=== PATIENT | female | born 1970 | race Two or more races ===

== ENCOUNTER 2024-11-19 09:20 | Inpatient (IN) | payer MEDICARE, MEDICAID, SELFPAY ==
[2024-11-19 09:40] VITALS: BP 114/74; PULSE 101; RESP 20; TEMP 37.2; O2SAT 97
--- NOTE | 2024-11-19 09:51 | XR_ITS ---
Examination: Abdomen sonogram, Limited Date and time of exam: November 19, 2024 10:14 AM Indications: Right upper abdominal pain with nausea beginning 3 days ago, history gallstones Technique: Real-time edmonds scale transabdominal sonographic images of the upper abdomen obtained. Findings: Multiple gallstones, the largest 6 mm Gallbladder wall 0.3 cm no edema Common bile duct 0.2 cm no stones Pancreas obscured by bowel gas Liver 15.3 cm fatty liver no focal liver lesions Normal hepatopedal portal venous oh Patent IVC Impression: Cholelithiasis, negative for cholecystitis Normal common bile duct Fatty liver
--- NOTE | 2024-11-19 09:51 | PD.EDRME ---
Rapid Medical Screening Exam RME Arrival date/time: 11/19/24 09:20 54-year-old female with history of gallstones presents to the emergency department today complaints of gallstone attack Chief Complaint: Abdominal Pain Vital signs: Vital Signs Temperature 99.0 F 11/19/24 09:40 Pulse Rate 101 H 11/19/24 09:40 Respiratory Rate 20 11/19/24 09:40 Blood Pressure 114/74 11/19/24 09:40 Pulse Oximetry (%) 97 11/19/24 09:40 Oxygen Delivery Method Room Air 11/19/24 09:40
[2024-11-19 10:05] LABS: Basophils % (Auto) 0 % (0-2.5); Eosinophils % (Auto) 0 % (0-10); Hematocrit 31.5 % (36.0-46.0); Hemoglobin 10.5 g/dL (12.0-16.0); Immature Granulocytes % (Auto) 1 % (0-0); Immature Granulocytes Auto 0.11 Thou/mm3 (0.00-0.00); Lymphocytes # (Auto) 0.6 Thou/mm3 (1.0-4.8); Lymphocytes % (Auto) 3 % (10-50); Mean Corpuscular HGB Conc 33.3 g/dl (31.0-37.0); Mean Corpuscular Hemoglobin 26.1 pg (25.0-35.0); Mean Corpuscular Volume 78 fL (80-100); Monocytes # (Auto) 0.7 Thou/mm3 (0.0-0.8); Monocytes % (Auto) 4 % (0-12); Neutrophils # (Auto) 16.8 Thou/mm3 (1.8-7.7); Neutrophils % (Auto) 92 % (37-80); Nucleated Red Blood Cell % 0 /100 WBC (0); Platelet Count 267 Thou/mm3 (140-440); RDW Standard Deviation 45.2 fL (36.4-46.3); Red Blood Count 4.03 Miln/mm3 (4.00-5.20); White Blood Count 18.2 Thou/mm3 (3.6-11.0)
[2024-11-19 10:23] LABS: Alanine Aminotransferase 11 U/L (10-49); Albumin, Serum 4.2 gm/dL (3.5-5.0); Albumin/Globulin Ratio 1.5 (1.2-2.2); Alkaline Phosphatase 143 U/L (46-116); Anion Gap 8 (7-16); Aspartate Amino Transferase 10 U/L (0-34); BUN/Creatinine Ratio 12 Ratio (12-20); Bilirubin,Total 0.5 mg/dL (0.3-1.2); Blood Urea Nitrogen 12 mg/dL (9-23); Calcium 8.7 mg/dL (8.3-10.6); Calcium (Corrected) 8.7 mg/dL (8.5-10.1); Carbon Dioxide 26.7 mMol/L (20.0-31.0); Chloride 100 mMol/L (98-107); Globulin 2.8 gm/dL (2.3-3.5); Glucose 169 mg/dL (74-106); Lipase 24 U/L (12-53); Osmolality,Calculated 273 (275-295); Potassium 3.9 mMol/L (3.4-5.1); Sodium 135 mMol/L (136-145); eGFR > 60 See Note
[2024-11-19 15:15] VITALS: BP 118/66; PULSE 83; RESP 18; TEMP 37.4; O2SAT 99
[2024-11-19 15:25] LABS: Collection Type, Urine Clean Catch
[2024-11-19 15:35] LABS: Bacteria,Urine Rare; Bilirubin,Urine 1+ (Negative); Blood,Urine Negative (Negative); Clarity,Urine Turbid (Clear/Hazy); Color,Urine Drk-Yellow (Lt Yel-Yel); Culture Indicated,Urine Contaminated; Glucose, Urine Negative (Negative); Hyaline Casts,Urine < 1 /hpf (0-1); Ketones,Urine Trace (Negative); Leukocyte Esterase,Urine Positive (Negative); Nitrite,Urine Negative (Negative); Protein,Urine 2+ (Neg - Trace); RBC,Urine 10 /hpf (0-3); Specific Gravity,Urine 1.043 (1.001-1.035); Squamous Epithelial Cell,Urine 29 /hpf (0-5); WBC,Urine 53 /hpf (0-5)
[2024-11-19 15:36] LABS: HCG Qualitative,Urine Negative
--- NOTE | 2024-11-19 16:44 | PC.NURSE ---
Pt. here from home to room 14, pt. states she has had nausea, abdominal pain that is burning X 3 days, pt. denies any vomiting. Pt. states her urine looked terrible but pt. denies pain with urination. Pt. states she does notice the pain comes after she eats, pt. states she has a history of gallstones.
--- NOTE | 2024-11-19 18:52 | EDNOTE_ITS ---
ED Abdominal Pain RME/HPI General Chief Complaint: Abdominal Pain Stated complaint: RUQ PAIN HX OF GALLSTONES Time seen by provider: 11/19/24 19:16 Arrival date/time: 11/19/24 09:20 RME / HPI RME / HPI narrative: 11/19/24 09:20 Rapid Medical Screening Exam 54-year-old female with history of gallstones presents to the emergency department today complaints of gallstone attack Main ED Evaluation: Patient is a 54-year-old female with past medical history of hypertension, hyperlipidemia, obesity, COPD, depression, and anxiety who presents with about 3 days of worsening generalized mid-abdominal pain radiating to the suprapubic area with associated nausea and decreased appetite. She reports pain is colicky and today the pain was reaching 9-10/10 on pain scale therefore she came into the ED. Today she took 2 ibuprofen 800 mg without relief. Patient endorses history of 3 episodes of similar pain in the same area for the last 1 year which ended up self-resolving. She was diagnosed with gallstones by her PCP and she was previously referred to a general surgeon in [place] but was pending clearance for surgery. She denies known history of diverticulitis or diverticulosis. She has chronic constipation for which she takes Colace. MD complaint: abdominal pain Onset (ago): day(s) Consistency: colicky Location: diffuse Severity: severe Severity scale (1-10): 10 Quality: other ( unable to describe ) Radiation: back Migration to: suprapubic Relieving factors: nothing Exacerbating factors: nothing Context: history of similar episodes (3) Associated symptoms: nausea Treatments prior to arrival: NSAIDs Related Data Home Medications ?Medication ?Instructions ?Recorded ?Confirmed metoprolol tartrate 100 mg tablet 100 mg PO BID 11/20/24 amlodipine 10 mg tablet 10 mg PO QDAY 08/14/2111/20 clozapine 100 mg tablet 250 mg PO HS 08/14/21 lisinopril 10 mg tablet 10 mg PO QDAY 08/14/2111/20 aripiprazole 10 mg tablet 10 mg PO QDAY 01/06/2411/20 buspirone 30 mg tablet 30 mg PO BID 01/06/24 docusate sodium 250 mg capsule 250 mg PO QDAY 01/06/24 11/20/24 fluoxetine 60 mg tablet 60 mg PO QDAY 01/06/2411/20 montelukast 10 mg tablet 10 mg PO QDAY 01/06/2411/20 omeprazole 40 mg capsule,delayed 40 mg PO QDAY 4 11/20/24 release oxcarbazepine 150 mg tablet 150 mg PO BID 01/06/2401/09 simvastatin 20 mg tablet 20 mg PO QPM 01/06/24 albuterol sulfate 90 mcg/actuation 2 puff inhalation Q 4H PRN 11/20/24 11/20/24 aerosol inhaler shortness of breath umeclidinium 62.5 mcg-vilanterol 1 inh inhalation Q24H 11/20/24 11/20/24 25 mcg/actuation powdr for inhalation (Anoro Ellipta) Allergies Allergy/AdvReac Type Severity Reaction Status Date / Time No Known Allergies Allergy Verified 11/19/24 09:23 Past Medical History Past Medical History Comments PMH COMMENT: Past Medical History: Hypertension, hyperlipidemia, obesity, COPD, depression, and anxiety Family History: No known history of gallbladder issues Surgical History: No previous surgeries Social History: Current smoker 3 cigarettes per day, denies current alcohol use, denies recreational drug use Current Medications: Include metoprolol, lisinopril, buspirone, clozapine, montelukast Allergies: No known drug allergies ED Exam Narrative Physical exam: Physical Exam General: Awake and in no acute distress. Conversational and non-toxic appearing. HEENT: Normocephalic, atraumatic, mucous membranes moist. Heart: Regular rate and rhythm, no murmurs. Lungs: Clear to auscultation with no wheezing or crackles. Abdomen: Soft, obese, nondistended, tenderness to palpation mid abdomen and suprapubic area, positive bowel sounds. ?No guarding or rebound tenderness. Negative Beebe's sign. Neurologic: Alert and oriented x3, no gross neurological deficit, and patient able to move all 4 extremities. Extremities: No edema. Skin: No rash or ecchymoses. Course Course Course Narrative: US gallbladder Findings: Multiple gallstones, the largest 6 mm Gallbladder wall 0.3 cm no edema Common bile duct 0.2 cm no stones Pancreas obscured by bowel gas Liver 15.3 cm fatty liver no focal liver lesions Normal hepatopedal portal venous oh Patent IVC Impression: Cholelithiasis, negative for cholecystitis Normal common bile duct Fatty liver CT abdomen/pelvis without contrast: Findings: No focal liver or splenic lesions No gallstones No pancreatic or adrenal mass No renal or ureteral calculi, no hydronephrosis Marked inflammatory change about the rectosigmoid, axial image 168 with possible diverticula Atrophic uterus Urinary bladder is intact Air-containing possible abscess in the perirectal sigmoid region, 5.2 cm IMPRESSION: Marked abnormal inflammatory change about the rectosigmoid, differential would include perforated tumor, diverticulitis, other colitis patterns Air-containing possible abscess in the pelvis 5.2 cm Quality Measures none Orders Category Date Time Status COVID-19 Screening Questionnaire NOW Care 11/19/24 22:09 Completed Decision to Admit X1 Care 11/19/24 22:09 Completed NPO NOW Care 11/19/24 22:20 Active Consult to General Surgery Stat Cons 11/19/24 21:15 Ordered Diet NPO (NOW) Diet 11/19/24 22:[address] abdomen pelvis wo con Stat Exams 11/19/24 18:54 Completed US gall bladder Stat Exams 11/19/24 09:51 Completed Blood Culture (Lab) Stat Lab 11/19/24 23:00 Received CBC Stat Lab 11/19/24 09:59 Completed Comprehensive Metabolic Panel Stat Lab 11/19/24 09:59 Completed HCG Qualitative,Urine Stat Lab 11/19/24 15:19 Completed Lipase Stat Lab 11/19/24 09:59 Completed UA, C/S IF [Urinalysis, C/S if Indicated] Stat Lab 11/19/24 15:19 Completed Urinalysis, C/S if Indicated Stat Lab 11/19/24 20:19 Completed HYDROcodone*/APAP 5/325 [[place] 5/325] Med 11/19/24 20:35 Discontinued 1 tab PO X1 ONE Morphine Inj Med 11/19/24 20:19 Discontinued 2 mg IVP X1 ONE Sodium Chloride 0.9% 1000 ml [Ns] 1,000 ml Med 11/19/24 22:12 Discontinued IV 999 mls/hr cefTRIAXone/D5w 1gm IV premix [Rocephin/D5w 1gm IV Med 11/19/24 22:16 Discontinued premix] 50 ml IV X1 metroNIDAZOLE/NS 500 MG IVPB [Flagyl 500 mg IV] Med 11/19/24 22:16 Discontinued 500 mg in 100 ml IV X1 Vital Signs Vital signs: Vital Signs Temperature 99.0 F 11/19/24 09:40 Pulse Rate 101 H 11/19/24 09:40 Respiratory Rate 20 11/19/24 09:40 Blood Pressure 114/74 11/19/24 09:40 Pulse Oximetry (%) 97 11/19/24 09:40 Oxygen Delivery Method Room Air 11/19/24 09:40 Abdominal Pain MDM MDM Narrative MDM Narrative:: 18:50 Patient seen in ED 14 by me. Workup at this point shows leukocytosis, US gallbladder shows cholelithiasis but no active cholecystitis. However patient is still symptomatic and complains of 10/[address] non-con abdomen/pelvis. 21:15 CT read back, there is again no evidence of cholecystitis, but there is a pelvic abscess measuring 5.2 cm. Marked abnormal inflammatory change about the rectosigmoid, differential would include perforated tumor, diverticulitis, other colitis patterns. Consulted with Dr. White, who saw and examined the patient at bedside, and stated there was no need for surgical interventions at this time, treat with IV antibiotics. Suspect that the patient's prior episodes of abdominal pain were possibly diverticulitis or colitis instead of gallstone attacks, as the patient described the previous episodes having the same pain. 22:00 Discussed patient's presentation, workup, and results with hospitalist team, resident Dr. Brothers for admission who will evaluate the patient. Patient data External records reviewed:: [facility] previous records Clinical information provided by:: patient Social determinants that could affect healthcare access:: none Patient has the following chronic illnesses:: Hypertension, hyperlipidemia, COPD, depression, anxiety How is presenting disease/condition affected by chronic disease/condition?: uneffected by Evaluation data The following diagnostics were reviewed and interpreted by me:: lab results and radiology exam(s) Lab and/or radiology exams considered but not ordered:: None Interpretation Summary: Likely recurrent gallstone attacks Medications / Prescriptions Medications or Prescriptions considered but not ordered:: * None Medication administrations:: Medication Administration History Acetaminophen (Acetaminophen 325 Mg Tablet) 650 mg PO Q6H PRN PRN Reason: PAIN SCALE 1-3 (mild Stop: 12/19/24 22:41 Acetaminophen (Acetaminophen 325 Mg Tablet) 650 mg PO Q6H PRN PRN Reason: Fever >100 Stop: 12/19/24 22:41 Hydrocodone Bitart/Acetaminophen (Hydrocodone/Apap 10/325 Tab) 1 tab PO Q4HR PRN PRN Reason: PAIN SCALE 7-10 (Severe Stop: 11/24/24 22:41 Last Admin: 11/20/24 00:51 Dose: 1 tab Documented By: JON Amlodipine Besylate (Amlodipine Besylate 5 Mg Tablet) 10 mg PO QDAY [facility] Stop: 12/19/24 22:54 Last Admin: 11/20/24 00:47 Dose: Not Given Documented By: JON Non-Admin Reason: Held by Aripiprazole (Aripiprazole 5 Mg Tablet) 10 mg PO QDAY [facility] Stop: 12/20/24 08:59 Atorvastatin Calcium (Atorvastatin Calcium 20 Mg Tablet) 20 mg PO [facility] Stop: 12/20/24 20:59 Buspirone HCl (Buspirone Hcl 5 Mg Tablet) 30 mg PO BID JOE Stop: 12/20/24 08:59 Clozapine (Clozapine 50 Mg Tablet) 250 mg PO [facility] Stop: 12/20/24 20:59 Fluoxetine HCl (Fluoxetine Hcl 10 Mg Capsule) 60 mg PO QDAY JOE Stop: 12/20/24 08:59 Piperacillin Sod/Tazobactam (Sod 3.375 gm/ Sodium Chloride) 100 mls @ 25 mls/hr IV Q8HR JOE Stop: 11/27/24 05:59 Levothyroxine Sodium (Levothyroxine Sodium 25 Mcg Tablet) 50 mcg PO ACBR JOE Stop: 12/20/24 05:59 Lisinopril (Lisinopril 2.5 Mg Tablet) 10 mg PO QDAY [facility] Stop: 12/19/24 22:59 Metoprolol Tartrate (Metoprolol Tartrate 25 Mg Tablet) 100 mg PO BID JOE Stop: 12/19/24 22:59 Non-Formulary Medication (Oxcarbazepine) 150 mg PO BID JOE Stop: 12/19/24 22:59 Ondansetron HCl (Ondansetron Inj 2 Mg/Ml Inj 2 Ml) 4 mg IV Q6H PRN; Protocol PRN Reason: NAUSEA OR VOMITING Stop: 12/19/24 22:41 Oxycodone/Acetaminophen (Oxycodone/Apap 5/325 Tablet) 1 tab PO Q6H PRN PRN Reason: PAIN SCALE 4-6 (Moderate Stop: 11/24/24 22:41 Pantoprazole Sodium (Pantoprazole Inj 40 Mg Vial) 40 mg IVP QDAY [facility] Stop: 12/20/24 08:59 Polyethylene Glycol (Polyethylene Glycol 17 Gm Packet) 17 gm PO QDAY [facility] Stop: 12/20/24 08:59 Discontinued Medications Hydrocodone Bitart/Acetaminophen (Hydrocodone/Apap 5/325 Tablet) 1 tab PO X1 ONE Stop: 11/19/24 20:36 Last Admin: 11/19/24 20:41 Dose: 1 tab Documented By: EF Buspirone HCl (Buspirone Hcl 5 Mg Tablet) 15 mg PO BID [facility] Stop: 12/19/24 22:59 Last Admin: 11/20/24 00:46 Dose: Not Given Documented By: CP Non-Admin Reason: Cancelled by Provider Sodium Chloride (Ns) 1,000 mls @ 999 mls/hr IV .Q1H1M ONE Stop: 11/19/24 23:12 Last Infusion: 11/19/24 23:49 Dose: Infused Documented By: Admin: 11/19/24 22:48 Dose: 999 mls/hr Documented By: EF Ceftriaxone Sodium/Dextrose (Rocephin/D5w 1gm Iv Premix) 50 mls @ 100 mls/hr IV X1 ONE Stop: 11/19/24 22:45 Last Infusion: 11/19/24 23:19 Dose: Infused Documented By: Admin: 11/19/24 22:49 Dose: 100 mls/hr Documented By: EF Metronidazole (Flagyl 500 Mg Iv) 500 mg in 100 mls @ 100 mls/hr IV X1 ONE Stop: 11/19/24 23:15 Last Admin: 11/20/24 01:43 Dose: 100 mls/hr Documented By: CP Piperacillin Sod/Tazobactam (Sod 3.375 gm/ Sodium Chloride) 100 mls @ 200 mls/hr IV X1 ONE Stop: 11/19/24 23:59 Last Admin: 11/19/24 23:53 Dose: 200 mls/hr Documented By: EF Montelukast Sodium (Montelukast Sodium 10 Mg Tablet) 10 mg PO X1 ONE Stop: 11/19/24 22:49 Last Admin: 11/20/24 00:51 Dose: 10 mg Documented By: CP Morphine Sulfate (Morphine Sulf Inj 10 Mg/Ml Vial) 2 mg IVP X1 ONE Stop: 11/19/24 20:20 Last Admin: 11/19/24 20:42 Dose: Not Given Documented By: EF Non-Admin Reason: Cancelled by Provider None Consultations Consultation(s) initiated? (list below): Yes Consultation #1 (Physician, Specialty, Details): 20:50 Dr. White general surgery at bedside, evaluating patient. Reviewed US gallbladder and CT reads with Dr. White. He feels that there is no acute cholecystitis, however there is suspicious phelgmon in the lower abdomen, which is consistent with location of the patient's pain. Will await CT read. 21:15 CT read back showing pelvic abscess 5.2 cm. Marked abnormal inflammatory change about the rectosigmoid, differential would include perforated tumor, diverticulitis, other colitis patterns. Consulted with Dr. White, no need for surgical interventions, treat with IV antibiotics. Diagnosis Differential diagnosis abdominal pain: abdominal pain and diverticulitis Most likely diagnosis given after review of the tests above:: Most likely perforated diverticulitis Admission Indicated Admission indicated?: indicated Explain why admission is indicated or not indicated:: Patient needs IV antibiotics to treat pelvic abscess. Admission Request Was there a request for admission?: Yes Admission Attestation Admission request attestation: Discussed case with [] from Hospitalist service regarding admission. Discussed patients ED course, exam findings, labs, and radiology results. The Hospitalist [agrees,declines] to accept the patient for admission. Disposition Plan Disposition Plan: Admit Discharge Plan Plan Patient Disposition: Admit Acute Care w/in Hospital Patient condition on transfer: Stable Problem List Clinical Impression: Acute abscess of female pelvis, Diverticulitis of large intestine with abscess
[2024-11-19 18:53] VITALS: BP 102/64; PULSE 84; RESP 20; TEMP 37.8; O2SAT 95
--- NOTE | 2024-11-19 18:54 | XR_ITS ---
Examination: CT abdomen and pelvis without contrast. Coronal 3-D reconstructions. Sagittal 2-D reconstructions. Date and time of exam:November 19, 2024 1949 hours Comparison March 26, 2012 INDICATIONS: Abdominal pain beginning 3 days ago CTDI: vol (mGy): 17.6 DLP: (mGycm): 968 Technique: Axial images of the abdomen have been obtained, 3 mm slice thickness Intravenous contrast material has not been administered. Low dose protocols were performed. One or more of the following dose reduction techniques were used; automated exposure control, adjustment of the mA and/or KV according to patient size, use of iterative reconstruction technique. Findings: No focal liver or splenic lesions No gallstones No pancreatic or adrenal mass No renal or ureteral calculi, no hydronephrosis Marked inflammatory change about the rectosigmoid, axial image 168 with possible diverticula Atrophic uterus Urinary bladder is intact Air-containing possible abscess in the perirectal sigmoid region, 5.2 cm IMPRESSION: Marked abnormal inflammatory change about the rectosigmoid, differential would include perforated tumor, diverticulitis, other colitis patterns Air-containing possible abscess in the pelvis 5.2 cm
[2024-11-19 20:30] VITALS: BP 127/74; PULSE 88; RESP 16; TEMP 37.1; O2SAT 95
[2024-11-19 20:34] LABS: Collection Type, Urine Clean Catch
[2024-11-19] MEDS: HYDROcodone/APAP 5/325 TABLET 1 TAB PO (20:41)
[2024-11-19 20:43] LABS: Bilirubin,Urine Negative (Negative); Blood,Urine Negative (Negative); Clarity,Urine Clear (Clear/Hazy); Color,Urine Yellow (Lt Yel-Yel); Culture Indicated,Urine Not Indicated; Glucose, Urine Negative (Negative); Ketones,Urine 1+ (Negative); Leukocyte Esterase,Urine Negative (Negative); Nitrite,Urine Negative (Negative); Protein,Urine 1+ (Neg - Trace); RBC,Urine 4 /hpf (0-3); Squamous Epithelial Cell,Urine 7 /hpf (0-5); Urobilinogen,Urine Negative mg/dL (0.0-1.0); WBC,Urine 3 /hpf (0-5)
[2024-11-19] MEDS: SODIUM CHLORIDE 0.9% 1000 ML 1,000 ML 999 ML IV (22:48)
[2024-11-19] MEDS: cefTRIAXone/D5w 1gm IV premix 50 ML IV (22:49)
--- NOTE | 2024-11-19 23:04 | PD.RESHP ---
Documentation for date of: 11/19/24 [facility] History of Present Illness History of present illness: This is a 54-year-old female with PMHx of HTN, HLD, obesity, hypothyroidism, active tobacco smoker, depression and generalized anxiety presenting to the ED with sudden onset generalized abdominal pain that started 3 days ago. Pain is stabbing in nature,9/10, mostly epigastric but moved to lower abdominal. Not related to eating. Associated with fever, chills, nausea but no vomiting or diarrhea. She has chronic constipation for which she takes PRN MIRALAX and DOCUSATE. Last bowel movement 3 days ago was normal, nonbloody. She tried [id number] ANALGESICS but did not help. Had similar symptoms about a month ago that resolved spontaneously. Also pertinent, she was diagnosed with gallstones by PCP and currently pending surgical clearance for cholecystectomy in [place]. She has no previous history of GI disorders other than distal history of colitis, chronic constipation, and GERD for which she take daily PPIs. Her last colonoscopy was last year in [place], she never followed up on results but uncertain if there were any abnormal findings. Denies headaches, fall or trauma, LOC, chest pain, shortness of breath, dysuria, urinary urgency or frequency. ED COURSE: On exam she had mild distress due to pain. Remainder of exam relatively normal. Vitals within normal limits. WBC 18, Hgb 10.5 (baseline around 11), MCV 78. GLUCOSE 169, alk phos 143, sodium 135, otherwise chemistry panel normal. UA negative for UTI. Abdominal ultrasound shows cholelithiasis but no cholecystitis, normal CBD, fatty liver disease. CT abdominal pelvis showed rectosigmoid inflammatory changes, suggestive of perforated tumor or diverticulosis, lightest pattern, and possible 5.2 cm pelvic abscess. ED gave ZOSYN x1. General surgery, Dr. White was consulted stated no indication for immediate surgical intervention but recommended IV ANTIBIOTICS. PMHx: HTN, HLD, obesity, COPD, anxiety, depression PSHx: No previous abdominal surgeries. MEDS: METOPROLOL tartrate 100 mg BID, LISINOPRIL 10 mg daily, AMLODIPINE 10 mg daily, SIMVASTATIN 20 mg daily, LEVOTHYROXINE 50 mcg, BUSPIRONE 30 mg BID, OXCARBAZEPINE 300 mg daily, OMEPRAZOLE 10 mg daily, FLUOXETINE 60 mg daily, CLOZAPINE 250 mg HS, OMEPRAZOLE 40 mg daily, DOCUSATE 250 mg daily, MONTELUKAST 10 mg daily. ALLERGIES: NKA SH: Smokes 3-4 cigarettes daily x 30 years, distant history of marijuana use, no alcohol use. Exam Vital Signs Temp Pulse Resp BP Pulse Ox O2 Del Method 98.8 F 88 16 127/74 95 Room Air 11/19/24 20:30 11/19/24 20:30 11/19/24 20:30 11/19/24 20:30 11/19/24 20:30 11/19/24 20:30 Results: Labs 11/19/24 09:59 11/19/24 09:59 Labs: Short CBC 11/19/24 Range/Units 09:59 WBC 18.2 H (3.6-11.0) Thou/mm3 Hgb 10.5 L (12.0-16.0) g/dL Hct 31.5 L (36.0-46.0) % Plt Count 267 (140-440) Thou/mm3 BMP 11/19/24 09:59 Sodium 135 L Potassium 3.9 Chloride 100 Carbon Dioxide 26.7 BUN 12 Creatinine 1.0 Glucose 169 H Calcium 8.7 Liver Function 11/19/24 Range/Units 09:59 Total Bilirubin 0.5 (0.3-1.2) mg/dL AST 10 (0-34) U/L ALT 11 (10-49) U/L Alkaline Phosphatase 143 H (46-116) U/L Albumin 4.2 (3.5-5.0) gm/dL Urine 11/19/24 11/19/24 Range/Units 15:19 20:19 Urine Color Drk-Yellow A Yellow (Lt Yel-Yel) Urine Clarity Turbid A Clear (Clear/Hazy) Urine pH 6.0 6.0 (5.0-7.0) Ur Specific [place] 1.043 H 1.020 (1.001-1.035) Urine Protein 2+ A 1+ A (Neg - Trace) Urine Glucose (UA) Negative Negative (Negative) Quality Measures Quality Measures none Medications Home Medications and Allergies Home Medications ?Medication ?Instructions ?Recorded ?Confirmed ?Type metoprolol tartrate 100 mg tablet 100 mg PO BID 01/18/19 01/06/24 History amlodipine 10 mg tablet 10 mg PO QDAY 08/14/21 01/06/24 History clozapine 100 mg tablet 250 mg PO HS 08/14/21 01/06/24 History lisinopril 10 mg tablet 20 mg PO QDAY 08/14/21 01/06/24 History aripiprazole 10 mg tablet 10 mg PO QDAY 01/06/24 01/06/24 History buspirone 30 mg tablet 30 mg PO BID 01/06/24 01/06/24 History docusate sodium 250 mg capsule 250 mg PO QDAY 01/06/24 01/06/24 History fluoxetine 60 mg tablet 60 mg PO QDAY 01/06/24 01/06/24 History montelukast 10 mg tablet 10 mg PO QDAY 01/06/24 01/06/24 History omeprazole 40 mg capsule,delayed 40 mg PO QDAY 01/06/24 01/06/24 History release oxcarbazepine 150 mg tablet 150 mg PO BID 01/06/24 01/06/24 History simvastatin 20 mg tablet 20 mg PO QPM 01/06/24 01/06/24 History albuterol sulfate 90 mcg/actuation 2 puff inhalation Q4H PRN 11/20/24 11/20/24 History aerosol inhaler shortness of breath umeclidinium 62.5 mcg-vilanterol 1 inh inhalation Q24H 11/20/24 11/20/24 History 25 mcg/actuation powdr for inhalation (Anoro Ellipta) Allergies Allergy/AdvReac Type Severity Reaction Status Date / Time No Known Allergies Allergy Verified 11/19/24 09:23 Visit Medications Acetaminophen (Acetaminophen 325 Mg Tablet) 650 mg PO Q6H PRN PRN Reason: PAIN SCALE 1-3 (mild Stop: 12/19/24 22:41 Acetaminophen (Acetaminophen 325 Mg Tablet) 650 mg PO Q6H PRN PRN Reason: Fever >100 Stop: 12/19/24 22:41 Hydrocodone Bitart/Acetaminophen (Hydrocodone/Apap 10/325 Tab) 1 tab PO Q4HR PRN PRN Reason: PAIN SCALE 7-10 (Severe Stop: 11/24/24 22:41 Amlodipine Besylate (Amlodipine Besylate 5 Mg Tablet) 10 mg PO QDAY [facility] Stop: 12/19/24 22:54 Aripiprazole (Aripiprazole 5 Mg Tablet) 10 mg PO QDAY JOE Stop: 12/20/24 08:59 Atorvastatin Calcium (Atorvastatin Calcium 20 Mg Tablet) 20 mg PO HS JOE Stop: 12/20/24 20:59 Buspirone HCl (Buspirone Hcl 5 Mg Tablet) 15 mg PO BID JOE Stop: 12/19/24 22:59 Clozapine (Clozapine 50 Mg Tablet) 250 mg PO HS JOE Stop: 12/20/24 20:59 Fluoxetine HCl (Fluoxetine Hcl 10 Mg Capsule) 60 mg PO QDAY JOE Stop: 12/20/24 08:59 Sodium Chloride (Ns) 1,000 mls @ 999 mls/hr IV .Q1H1M ONE Stop: 11/19/24 23:12 Last Admin: 11/19/24 22:48 Dose: 999 mls/hr Metronidazole (Flagyl 500 Mg Iv) 500 mg in 100 mls @ 100 mls/hr IV X1 ONE Stop: 11/19/24 23:15 Piperacillin Sod/Tazobactam (Sod 3.375 gm/ Sodium Chloride) 100 mls @ 200 mls/hr IV Q6HR JOE Stop: 11/26/24 22:45 Levothyroxine Sodium (Levothyroxine Sodium 25 Mcg Tablet) 50 mcg PO ACBR JOE Stop: 12/20/24 05:59 Lisinopril (Lisinopril 2.5 Mg Tablet) 10 mg PO QDAY [facility] Stop: 12/19/24 22:59 Metoprolol Tartrate (Metoprolol Tartrate 25 Mg Tablet) 100 mg PO BID JOE Stop: 12/19/24 22:59 Non-Formulary Medication (Oxcarbazepine) 150 mg PO BID JOE Stop: 12/19/24 22:59 Ondansetron HCl (Ondansetron Inj 2 Mg/Ml Inj 2 Ml) 4 mg IV Q6H PRN; Protocol PRN Reason: NAUSEA OR VOMITING Stop: 12/19/24 22:41 Oxycodone/Acetaminophen (Oxycodone/Apap 5/325 Tablet) 1 tab PO Q6H PRN PRN Reason: PAIN SCALE 4-6 (Moderate Stop: 11/24/24 22:41 Pantoprazole Sodium (Pantoprazole Inj 40 Mg Vial) 40 mg IVP QDAY [facility] Stop: 12/20/24 08:59 Polyethylene Glycol (Polyethylene Glycol 17 Gm Packet) 17 gm PO QDAY JOE Stop: 12/20/24 08:59 Discontinued Medications Hydrocodone Bitart/Acetaminophen (Hydrocodone/Apap 5/325 Tablet) 1 tab PO X1 ONE Stop: 11/19/24 20:36 Last Admin: 11/19/24 20:41 Dose: 1 tab Ceftriaxone Sodium/Dextrose (Rocephin/D5w 1gm Iv Premix) 50 mls @ 100 mls/hr IV X1 ONE Stop: 11/19/24 22:45 Last Admin: 11/19/24 22:49 Dose: 100 mls/hr Montelukast Sodium (Montelukast Sodium 10 Mg Tablet) 10 mg PO X1 ONE Stop: 11/19/24 22:49 Morphine Sulfate (Morphine Sulf Inj 10 Mg/Ml Vial) 2 mg IVP X1 ONE Stop: 11/19/24 20:20 Last Admin: 11/19/24 20:42 Dose: Not Given Assessment & Plan Plan In summary: 54-year-old female PMHx of HTN, HLD, obesity, hypothyroidism, active tobacco smoker, depression and generalized anxiety, senting with acute abdominal pain. Admitted for pelvic abscess and IV ANTIBIOTICS. Appreciate recommendations from general surgery. Pelvic abscess Acute abdominal pain Chronic constipation GERD Presenting with 3 days of generalized abdominal pain, 9/10 scale, nausea, fever, and chills. Found to have rectosigmoid inflammation and 5.2 cm pelvic abscess possibly related to diverticular perforation. Abdominal ultrasound showed cholelithiasis but no cholecystitis. He has appointment with general surgery in [place] for next month, currently pending preop clearance. She had colonoscopy done 1 year ago in [place] but never followed up on results. She has chronic constipation for which she takes stool softeners and stimulants daily. On average, BM every third day, last BM 3 days ago and was normal, nonbloody. General surgery recommended IV ANTIBIOTICS, no surgical intervention at this time. No abnormal weight loss, vomiting or diarrhea or GI bleed. No weight loss or night sweats. ? Pain control. ? Started MIRALAX daily. ? Avoid suppository or stool stimulants in settings of possible diverticular disease ? Continue ZOSYN 3.375 mg q.6h. (2 to present) ? Continue PROTONIX 40 mg daily ? Consider GI consult HTN, HLD Chronic lower extremity edema ? Chronic lymphedema Previously on LASIX 20 mg daily for lower extremity edema, PCP stopped 1 month ago. On METOPROLOL 100 mg BID but denies history of heart failure. States she had an echo a year ago which was normal. No history of CHF. Had an echo done a year ago which was normal. Lower extremity edema on exam. Lung sounds are clear. Currently normotensive. HR 80s. Will hold home antihypertensives. Will resume as indicated. ? Resume home ATORVASTATIN 20 mg daily ? Holding home METOPROLOL 100 mg BID ? Holding home LISINOPRIL 10 mg daily ? Holding home AMLODIPINE 10 mg daily ? Consider heart failure workup if indicated. Hypothyroidism ? Resume home LEVOTHYROXINE 50 mcg AC BR Seasonal allergies ? Continued MONTELUKAST 10 mg daily Depression, MARY ? Resumed home BUSPIRONE 30 mg BID ? Resumed home OXCARBAZEPINE 300 mg daily ? Resumed home FLUOXETINE 60 mg daily ? Resumed home CLOZAPINE 250 mg HS Active tobacco user Smokes 3 liters daily for 3 days. ? Consider starting NICOTINE patch as needed Health maintenance Diet: Clear liquids GI prophylaxis: PROTONIX DVT prophylaxis: HEPARIN subcu Antibiotics: ZOSYN CODE STATUS: Full code Disposition: Continued IV ANTIBIOTICS. Patient case was discussed with attending, Gee Santana MD. Ian Brothers DO PGYI Attending Provider Attestation/Addendum I attest that I was physically present for the evaluation, physical examination, lab and imaging review of the patient with the residents. I discussed the case with the residents and agree with the findings and plans of care as documented above. Patient is a 54 years old female with past medical history of hypertension, hyperlipidemia, obesity, hypothyroidism, depression and general anxiety who presented to the ED with complaint of abdominal pain that started 3 days back. She stated that her pain is severe mostly around epigastric and lower abdominal region. She also has nausea and has not been able to eat well. Denied any fever, vomiting, diarrhea or bloody stool. Patient frequently gets constipation for which she takes as needed bowel softeners. Her last bowel movement was 3 days ago. In the ED, she was found to have WBC of 18. CT abdomen/pelvis was done, which showed rectosigmoid inflammatory change, suggestive of perforated tomorrow or diverticulosis, possible 5.2 pelvic abscess. General surgery was consulted by ED, who advised for admission and medical management but no surgical intervention for now. We will admit the patient for management of pelvic abscess, we will start her on IV Zosyn, analgesics and antiemetics. We will also resume his home medications. Lauren Santana MD
[2024-11-19] MEDS: PIPER/TAZO INJ 3.375 GM in SODIUM CHLORIDE 0.9% 100 ML IV (23:53)
[2024-11-20] VITALS (7 sets, daily range): BP systolic 103–119; BP diastolic 62–79; PULSE 72–91; RESP 16–19; TEMP 36.3–36.6; O2SAT 92–96; BMI 38.0
[2024-11-20] MEDS: HYDROcodone/APAP 10/325 TAB PO ×3 (00:51→18:26)
[2024-11-20] MEDS: MONTELUKAST SODIUM 10 MG TABLET PO (00:51)
[2024-11-20] MEDS: metroNIDAZOLE/NS 500 MG IVPB 500 MG/100 ML BAG 100 MG IV (01:43)
[2024-11-20 05:52] LABS: Basophils % (Auto) 0 % (0-2.5); Eosinophils # (Auto) 0.2 Thou/mm3 (0.0-0.5); Eosinophils % (Auto) 2 % (0-10); Hematocrit 26.5 % (36.0-46.0); Immature Granulocytes % (Auto) 1 % (0-0); Immature Granulocytes Auto 0.07 Thou/mm3 (0.00-0.00); Lymphocytes # (Auto) 1.4 Thou/mm3 (1.0-4.8); Lymphocytes % (Auto) 10 % (10-50); Mean Corpuscular HGB Conc 32.1 g/dl (31.0-37.0); Mean Corpuscular Hemoglobin 25.9 pg (25.0-35.0); Mean Corpuscular Volume 81 fL (80-100); Monocytes # (Auto) 0.7 Thou/mm3 (0.0-0.8); Monocytes % (Auto) 6 % (0-12); Neutrophils # (Auto) 10.7 Thou/mm3 (1.8-7.7); Neutrophils % (Auto) 82 % (37-80); Nucleated Red Blood Cell % 0 /100 WBC (0); Platelet Count 187 Thou/mm3 (140-440); Red Blood Count 3.28 Miln/mm3 (4.00-5.20); White Blood Count 13.1 Thou/mm3 (3.6-11.0)
[2024-11-20] MEDS: PIPER/TAZO INJ 3.375 GM in SODIUM CHLORIDE 0.9% 100 ML IV (05:53)
[2024-11-20 06:03] LABS: Hemoglobin 8.5 g/dL (12.0-16.0)
[2024-11-20 06:31] LABS: Alanine Aminotransferase 13 U/L (10-49); Albumin, Serum 3.5 gm/dL (3.5-5.0); Albumin/Globulin Ratio 1.5 (1.2-2.2); Alkaline Phosphatase 138 U/L (46-116); Anion Gap 8 (7-16); Aspartate Amino Transferase 16 U/L (0-34); BUN/Creatinine Ratio 14 Ratio (12-20); Bilirubin,Total 0.4 mg/dL (0.3-1.2); Blood Urea Nitrogen 10 mg/dL (9-23); Calcium 8.1 mg/dL (8.3-10.6); Calcium (Corrected) 8.5 mg/dL (8.5-10.1); Carbon Dioxide 26.4 mMol/L (20.0-31.0); Chloride 102 mMol/L (98-107); Creatinine (Component) 0.7 mg/dL (0.6-1.3); Estimated Creatinine Clearance 118.8 mL/min (>60); Globulin 2.3 gm/dL (2.3-3.5); Glucose 102 mg/dL (74-106); Magnesium 1.9 mg/dL (1.6-2.6); Osmolality,Calculated 270 (275-295); Phosphorous 2.5 mg/dL (2.4-5.1); Potassium 3.2 mMol/L (3.4-5.1); Sodium 136 mMol/L (136-145); Total Protein 5.8 gm/dL (5.7-8.2); eGFR > 60 See Note
[2024-11-20] MEDS: FLUoxetine HCL 10 MG CAPSULE 60 MG PO (08:42)
[2024-11-20] MEDS: POLYETHYLENE GLYCOL 17 GM PACKET PO (08:42)
[2024-11-20] MEDS: PANTOPRAZOLE INJ 40 MG VIAL IVP (08:43)
[2024-11-20] MEDS: BusPIRone HCL 5 MG TABLET 30 MG PO ×2 (08:43→20:19)
[2024-11-20] MEDS: ARIPiprazole 5 MG TABLET 10 MG PO (08:43)
[2024-11-20] MEDS: POTASSIUM CHLORIDE 20 mEq TABCR 40 MEQ PO (08:45)
[2024-11-20] MEDS: OXCARBazepine 150 MG TABLET (NON-FORMULARY) PO ×2 (09:00→20:20)
--- NOTE | 2024-11-20 10:48 | CHAP ---
Patient expressed gratitude for visit and prayer.
[2024-11-20 11:47] LABS: INR 1.1 (0.9-1.3); Prothrombin Time 11.8 Seconds (9.0-12.2)
--- NOTE | 2024-11-20 11:58 | ESPR_ITS ---
<Statement entered by Yahaira Langley MD - 11/24/24 16:22> I reviewed above note and agree with findings and plans. I have also personally examined the patient with medicine team and went over assessment and plan with medical team including electrical engineering intern and resident physician. Documentation for date of: 11/20/24 Subjective Subjective Interval history: 11/20/2024: Pt examined at bedside today. Says that she has been having some epigastric pain and it has radiated to her lower abdomen. She says that she has not had these feelings before, however she deals with chronic constipation which she takes MiraLAX for. She says she got a colonoscopy recently, however does not know what the results of this is. Says she still smokes cigs. No other complaints at this time. Exam Vital Signs Temp Pulse Resp BP Pulse Ox O2 Del Method 97.8 F 87 16 119/70 92 L Room Air 11/20/24 11:50 11/20/24 11:50 11/20/24 11:50 11/20/24 11:50 11/20/24 11:50 11/20/24 08:00 Narrative Exam General: AAOx3, NAD, obese female HEENT: Moist mucous membranes, conjunctiva clear, EOMI, PERRLA, Cardiovascular: S1, S2, radial pulses +2 bilat, RRR Pulmonary: CTAB bilat no cough, no wheezing GI: Tenderness palpitation, no guarding, rigidity, rebound tenderness or distension Extremities: No presence of trace or pitting edema in lower extremities bilaterally, dorsalis pedis pulses +2 bilaterally Neuro: AAOx3, no focal motor or sensory deficits in the UE or LE bilat Psych: Good judgement, thought and behavior Objective Labs 11/21/24 04:49 11/21/24 04:49 Labs: Laboratory Results - last 24 hr 11/19/24 11/19/24 11/20/24 15:19 20:19 04:11 WBC 13.1 H D RBC 3.28 L Hgb 8.5 L D Hct 26.5 L MCV 81 MCH 25.9 MCHC 32.1 RDW Std Deviation 47.0 H Plt Count 187 D Neut % (Auto) 82 H Lymph % (Auto) 10 [place] % (Auto) 6 Eos % (Auto) 2 Baso % (Auto) 0 Neut # (Auto) 10.7 H Lymph # (Auto) 1.4 [place] # (Auto) 0.7 Eos # (Auto) 0.2 Baso # (Auto) 0.0 Immature Gran # (Auto) 0.07 H Absolute Nucleated RBC 0.00 Immature Gran % 1 H Nucleated RBC % 0 PT 11.8 INR 1.1 APTT 37.0 H Sodium 136 Potassium 3.2 L D Chloride 102 Carbon Dioxide 26.4 Anion Gap 8 BUN 10 Creatinine 0.7 Estim Creat Clear Calc 118.8 eGFR > 60 BUN/Creatinine Ratio 14 Glucose 102 D Calculated Osmolality 270 L Calcium 8.1 L Corrected Calcium 8.5 Phosphorus 2.5 Magnesium 1.9 Total Bilirubin 0.4 AST 16 ALT 13 Alkaline Phosphatase 138 H Total Protein 5.8 Albumin 3.5 D Globulin 2.3 Albumin/Globulin Ratio 1.5 Ur Collection Type Clean Catch Clean Catch Urine Color Drk-Yellow A Yellow Urine Clarity Turbid A Clear Urine pH 6.0 6.0 Ur Specific [place] 1.043 H 1.020 Urine Protein 2+ A 1+ A Urine Glucose (UA) Negative Negative Urine Ketones Trace 1+ A Urine Blood Negative Negative Urine Nitrite Negative Negative Urine Bilirubin 1+ A Negative Urine Urobilinogen (Auto) 4.0 Negative Ur Leukocyte Esterase Positive Negative Urine RBC 10 H 4 H Urine WBC 53 H 3 Ur Squamous Epith Cells 29 H 7 H Urine Bacteria Rare None Hyaline Casts < 1 Ur Culture Indicated? Contaminated Not Indicated Urine HCG, Qual Negative Quality Measures Quality Measures none Assessment & Plan Assessment Current Active Medications: Generic Name Dose Route Start Last Admin Trade Name Freq PRN Reason Stop Dose Admin Acetaminophen 650 mg 11/19/24 22:42 Acetaminophen 325 Mg Tablet PO 12/19/24 22:41 Q6H PRN PAIN SCALE 1-3 (mild Acetaminophen 650 mg 11/19/24 22:42 Acetaminophen 325 Mg Tablet PO 12/19/24 22:41 Q6H PRN Fever >100 Hydrocodone Bitart/Acetaminophen 1 tab 11/19/24 22:42 11/20/24 08:54 Hydrocodone/Apap 10/325 Tab PO 11/24/24 22:41 1 tab Q4HR PRN Administration PAIN SCALE 7-10 (Severe Amlodipine Besylate 10 mg 11/19/24 22:55 11/20/24 00:47 Amlodipine Besylate 5 Mg Tablet PO 12/19/24 22:54 Not Given QDAY JOE Aripiprazole 10 mg 11/20/24 09:00 11/20/24 08:43 Aripiprazole 5 Mg Tablet PO 12/20/24 08:59 10 mg QDAY JOE Administration Atorvastatin Calcium 20 mg 11/20/24 21:00 Atorvastatin Calcium 20 Mg Tablet PO 12/20/24 20:59 HS [facility] Buspirone HCl 30 mg 11/20/24 09:00 11/20/24 08:43 Buspirone Hcl 5 Mg Tablet PO 12/20/24 08:59 30 mg BID JOE Administration Clozapine 250 mg 11/20/24 21:00 Clozapine 50 Mg Tablet PO 12/20/24 20:59 HS [facility] Protocol Fluoxetine HCl 60 mg 11/20/24 09:00 11/20/24 08:42 Fluoxetine Hcl 10 Mg Capsule PO 12/20/24 08:59 60 mg QDAY JOE Administration Piperacillin Sod/Tazobactam 100 mls @ 25 mls/hr 11/20/24 06:00 11/20/24 05:53 Sod 3.375 gm/ Sodium Chloride IV 11/27/24 05:59 25 mls/hr Q8HR JOE Administration Levothyroxine Sodium 50 mcg 11/20/24 06:00 11/20/24 05:54 Levothyroxine Sodium 25 Mcg Tablet PO 12/20/24 05:59 Not Given ACBR [facility] Lisinopril 10 mg 11/19/24 23:00 Lisinopril 2.5 Mg Tablet PO 12/19/24 22:59 QDAY [facility] Metoprolol Tartrate 100 mg 11/19/24 23:00 Metoprolol Tartrate 25 Mg Tablet PO 12/19/24 22:59 BID [facility] Ondansetron HCl 4 mg 11/19/24 22:42 Ondansetron Inj 2 Mg/Ml Inj 2 Ml IV 12/19/24 22:41 Q6H PRN NAUSEA OR VOMITING Protocol Oxcarbazepine 150 mg 11/20/24 09:00 Oxcarbazepine 150 Mg Tablet (Non-Formulary) PO 12/20/24 08:59 BID [facility] Oxycodone/Acetaminophen 1 tab 11/19/24 22:42 Oxycodone/Apap 5/325 Tablet PO 11/24/24 22:41 Q6H PRN PAIN SCALE 4-6 (Moderate Pantoprazole Sodium 40 mg 11/20/24 09:00 11/20/24 08:43 Pantoprazole Inj 40 Mg Vial IVP 12/20/24 08:59 40 mg QDAY JOE Administration Polyethylene Glycol 17 gm 11/20/24 09:00 11/20/24 08:42 Polyethylene Glycol 17 Gm Packet PO 12/20/24 08:59 17 gm QDAY JOE Administration Plan Assessment 54-year-old female PMHx of HTN, HLD, obesity, hypothyroidism, active tobacco smoker, depression and generalized anxiety, senting with acute abdominal pain. Admitted for pelvic abscess and IV ANTIBIOTICS. Pelvic abscess Acute abdominal pain Chronic constipation GERD Presenting with 3 days of generalized abdominal pain, 9/10 scale, nausea, fever, and chills. Found to have rectosigmoid inflammation and 5.2 cm pelvic abscess possibly related to diverticular perforation. Abdominal ultrasound showed cholelithiasis but no cholecystitis. He has appointment with general surgery in [place] for next month, currently pending preop clearance. She had colonoscopy done 1 year ago in [place] but never followed up on results. She has chronic constipation for which she takes stool softeners and stimulants daily. On average, BM every third day, last BM 3 days ago and was normal, nonbloody. General surgery recommended IV ANTIBIOTICS, no surgical intervention at this time. No abnormal weight loss, vomiting or diarrhea or GI bleed. No weight loss or night sweats Pt could be having Diverticulitis and could of developed an abscess Could be a component of IBD May need drainage at some point Plan: - General surgery consulted, appreciate recs ? Pain control. ? Started MIRALAX daily. ? Avoid suppository or stool stimulants in settings of possible diverticular disease ? Continue ZOSYN 3.375 mg q.6h. (2 to present) ? Continue PROTONIX 40 mg daily ? Consider GI consult HTN, HLD Chronic lower extremity edema ? Chronic lymphedema Previously on LASIX 20 mg daily for lower extremity edema, PCP stopped 1 month ago. On METOPROLOL 100 mg BID but denies history of heart failure. States she had an echo a year ago which was normal. No history of CHF. Had an echo done a year ago which was normal. Lower extremity edema on exam. Lung sounds are clear. Currently normotensive. HR 80s. Will hold home antihypertensives. Will resume as indicated. Plan: ? Resume home ATORVASTATIN 20 mg daily ? Holding home METOPROLOL 100 mg BID ? Holding home LISINOPRIL 10 mg daily ? Holding home AMLODIPINE 10 mg daily ? Consider heart failure workup if indicated. Hypothyroidism ? Resume home LEVOTHYROXINE 50 mcg AC BR Seasonal allergies ? Continued MONTELUKAST 10 mg daily Depression, MARY ? Resumed home BUSPIRONE 30 mg BID ? Resumed home OXCARBAZEPINE 300 mg daily ? Resumed home FLUOXETINE 60 mg daily ? Resumed home CLOZAPINE 250 mg HS Active tobacco user Smokes 3 liters daily for 3 days. ? Consider starting NICOTINE patch as needed #Health Maintenance Disposition: Med Surg DVT prophylaxis: GI prophylaxis: Protonix heparin subcu Diet: Clear liquids CODE STATUS: Full Patient seen and care discussed with my senior resident, Dr. Selby , and my attending physician, Dr. Shivam Hussein, PGY-1 L Patient is a 54-year-old female admitted for acute abdominal pain. CT abdomen pelvis was remarkable for pelvic abscess. Patient was started on IV Zosyn 3.375 q8H on (11/19 - ). General surgery evaluated the patient and recommended to continue IV antibiotics, no surgical intervention planned at this time. Patient's pain is well controlled with [place] and Morphine. sh eis tolerating diet at this time, remains afebrile and WBC within normal limits. We will continue to monitor closely. Disposition: IR abscess drainage to be scheduled Patient examined and case discussed with the team including attending physician. Note reviewed, I agree with the care plan as documented. - Noam Selby MD, PGY 2
[2024-11-20] MEDS: PIPER/TAZO 3.375 GM 50 ML IV ×2 (14:43→21:22)
--- NOTE | 2024-11-20 15:45 | ESCONSULT_ITS ---
Meds Home Medications and Allergies Home Medications ?Medication ?Instructions ?Recorded ?Confirmed ?Type metoprolol tartrate 100 mg tablet 100 mg PO BID 11/20/24 History amlodipine 10 mg tablet 10 mg PO QDAY 08/14/2111/20 History clozapine 100 mg tablet 250 mg PO HS 08/14/21 History lisinopril 10 mg tablet 10 mg PO QDAY 08/14/2111/20 History aripiprazole 10 mg tablet 10 mg PO QDAY 01/06/2411/20 History buspirone 30 mg tablet 30 mg PO BID 01/06/24 History docusate sodium 250 mg capsule 250 mg PO QDAY 01/06/24 11/20/24 History fluoxetine 60 mg tablet 60 mg PO QDAY 01/06/2411/20 History montelukast 10 mg tablet 10 mg PO QDAY 01/06/2411/20 History omeprazole 40 mg capsule,delayed 40 mg PO QDAY 4 11/20/24 History release oxcarbazepine 150 mg tablet 150 mg PO BID 01/06/2401/09 History simvastatin 20 mg tablet 20 mg PO QPM 01/06/24 History albuterol sulfate 90 mcg/actuation 2 puff inhalation Q 4H PRN 11/20/24 11/20/24 History aerosol inhaler shortness of breath umeclidinium 62.5 mcg-vilanterol 1 inh inhalation Q24H 11/20/24 11/20/24 History 25 mcg/actuation powdr for inhalation (Anoro Ellipta) Allergies Allergy/AdvReac Type Severity Reaction Status Date / Time No Known Allergies Allergy Verified 11/19/24 09:23 Exam Vital Signs Temp Pulse Resp BP Pulse Ox O2 Del Method 97.8 F 87 16 119/70 92 L Room Air 11/20/24 11:50 11/20/24 11:50 11/20/24 11:50 11/20/24 11:50 11/20/24 11:50 11/20/24 08:00 Assessment & Plan Additional Assessment Additional comments: Impression: Patient seen for possible diverticulitis with abscess. I was called on 4 gallbladder with that is an incidental finding Plan Plan: I would suggest we treat him with antibiotics and ask interventional radiologist to drain the abscess. No surgical intervention required now.
--- NOTE | 2024-11-20 15:45 | PD.SURCONS ---
Meds Home Medications and Allergies Home Medications ?Medication ?Instructions ?Recorded ?Confirmed ?Type metoprolol tartrate 100 mg tablet 100 mg PO BID 01/18/19 11/20/24 History amlodipine 10 mg tablet 10 mg PO QDAY 08/14/21 11/20/24 History clozapine 100 mg tablet 250 mg PO HS 08/14/21 11/20/24 History lisinopril 10 mg tablet 10 mg PO QDAY 08/14/21 11/20/24 History aripiprazole 10 mg tablet 10 mg PO QDAY 01/06/24 11/20/24 History buspirone 30 mg tablet 30 mg PO BID 01/06/24 11/20/24 History docusate sodium 250 mg capsule 250 mg PO QDAY 01/06/24 11/20/24 History fluoxetine 60 mg tablet 60 mg PO QDAY 01/06/24 11/20/24 History montelukast 10 mg tablet 10 mg PO QDAY 01/06/24 11/20/24 History omeprazole 40 mg capsule,delayed 40 mg PO QDAY 01/06/24 11/20/24 History release oxcarbazepine 150 mg tablet 150 mg PO BID 01/06/24 11/20/24 History simvastatin 20 mg tablet 20 mg PO QPM 01/06/24 11/20/24 History albuterol sulfate 90 mcg/actuation 2 puff inhalation Q4H PRN 11/20/24 11/20/24 History aerosol inhaler shortness of breath umeclidinium 62.5 mcg-vilanterol 1 inh inhalation Q24H 11/20/24 11/20/24 History 25 mcg/actuation powdr for inhalation (Anoro Ellipta) Allergies Allergy/AdvReac Type Severity Reaction Status Date / Time No Known Allergies Allergy Verified 11/19/24 09:23 Exam Vital Signs Temp Pulse Resp BP Pulse Ox O2 Del Method 97.8 F 87 16 119/70 92 L Room Air 11/20/24 11:50 11/20/24 11:50 11/20/24 11:50 11/20/24 11:50 11/20/24 11:50 11/20/24 08:00 Assessment & Plan Additional Assessment Additional comments: Impression: Patient seen for possible diverticulitis with abscess. I was called on 4 gallbladder with that is an incidental finding Plan Plan: I would suggest we treat him with antibiotics and ask interventional radiologist to drain the abscess. No surgical intervention required now.
--- NOTE | 2024-11-20 15:59 | PC.SS ---
SS met with patient who is alert/oriented. Patient verified demographics. She states she resides with her sister. Patient is independent with ADL's. Patient was admitted for pelvic abscess. Patient states she will return home once stable. Her sister, Nina, is the alt medical decision maker. PCP: Dr. Pace @ [facility] and last appt. was in September. Pharmacy: [facility]. No further d/c needs.
[2024-11-20] MEDS: ATORVASTATIN CALCIUM 20 MG TABLET PO (20:19)
[2024-11-20] MEDS: CLOZAPINE 50 MG 250 MG PO (20:19)
[2024-11-21] VITALS (7 sets, daily range): BP systolic 103–142; BP diastolic 66–93; PULSE 76–106; RESP 17–19; TEMP 36.5–36.8; O2SAT 91–97
[2024-11-21] MEDS: PIPER/TAZO 3.375 GM 50 ML IV ×3 (05:10→22:45)
[2024-11-21 06:22] LABS: Basophils % (Auto) 0 % (0-2.5); Eosinophils # (Auto) 0.3 Thou/mm3 (0.0-0.5); Eosinophils % (Auto) 3 % (0-10); Hematocrit 30.1 % (36.0-46.0); Hemoglobin 9.8 g/dL (12.0-16.0); Immature Granulocytes % (Auto) 1 % (0-0); Immature Granulocytes Auto 0.04 Thou/mm3 (0.00-0.00); Lymphocytes # (Auto) 0.8 Thou/mm3 (1.0-4.8); Lymphocytes % (Auto) 9 % (10-50); Mean Corpuscular HGB Conc 32.6 g/dl (31.0-37.0); Mean Corpuscular Volume 80 fL (80-100); Monocytes # (Auto) 0.4 Thou/mm3 (0.0-0.8); Monocytes % (Auto) 5 % (0-12); Neutrophils # (Auto) 7.1 Thou/mm3 (1.8-7.7); Neutrophils % (Auto) 82 % (37-80); Nucleated Red Blood Cell % 0 /100 WBC (0); Platelet Count 255 Thou/mm3 (140-440); RDW Standard Deviation 45.7 fL (36.4-46.3); Red Blood Count 3.77 Miln/mm3 (4.00-5.20); White Blood Count 8.7 Thou/mm3 (3.6-11.0)
[2024-11-21 06:30] LABS: Partial Thromboplastin Time 32.6 Seconds (22.0-36.0); Prothrombin Time 10.9 Seconds (9.0-12.2)
[2024-11-21 06:51] LABS: Alanine Aminotransferase 18 U/L (10-49); Albumin/Globulin Ratio 1.6 (1.2-2.2); Alkaline Phosphatase 153 U/L (46-116); Anion Gap 9 (7-16); Aspartate Amino Transferase 12 U/L (0-34); BUN/Creatinine Ratio 10 Ratio (12-20); Bilirubin,Total 0.4 mg/dL (0.3-1.2); Blood Urea Nitrogen 6 mg/dL (9-23); Chloride 101 mMol/L (98-107); Creatinine (Component) 0.6 mg/dL (0.6-1.3); Estimated Creatinine Clearance 136.2 mL/min (>60); Globulin 2.5 gm/dL (2.3-3.5); Glucose 142 mg/dL (74-106); Magnesium 1.8 mg/dL (1.6-2.6); Osmolality,Calculated 275 (275-295); Phosphorous 2.1 mg/dL (2.4-5.1); Potassium 3.6 mMol/L (3.4-5.1); Sodium 138 mMol/L (136-145); Total Protein 6.5 gm/dL (5.7-8.2); eGFR > 60 See Note
[2024-11-21] MEDS: HYDROcodone/APAP 10/325 TAB PO (07:21)
[2024-11-21] MEDS: BusPIRone HCL 5 MG TABLET 30 MG PO ×2 (09:21→20:53)
[2024-11-21] MEDS: FLUoxetine HCL 10 MG CAPSULE 60 MG PO (09:21)
[2024-11-21] MEDS: ARIPiprazole 5 MG TABLET 10 MG PO (09:22)
[2024-11-21] MEDS: POLYETHYLENE GLYCOL 17 GM PACKET PO (09:22)
[2024-11-21] MEDS: PANTOPRAZOLE INJ 40 MG VIAL IVP (09:23)
[2024-11-21] MEDS: OXCARBazepine 150 MG TABLET (NON-FORMULARY) PO ×2 (09:23→20:55)
--- NOTE | 2024-11-21 10:09 | ESPR_ITS ---
<Statement entered by Yahaira Langley MD - 11/28/24 11:50> I reviewed above note and agree with findings and plans. I have also personally examined the patient with medicine team and went over assessment and plan with medical team including intelligence intern and resident physician. <Statement entered by Riki Calvo MD - 11/22/24 10:54> Senior Resident Attestation: I supervised/discussed management plan with intelligence intern physician Dr. Hussein, and was involved in the care of this patient. I personally saw and examined the patient and discussed the assessment and plan with the entire medicine team, including my attending. I agree with the assessment and plan as documented. Patient's care was discussed with attending physician, Dr. Langley. Riki Calvo MD PGY-2. Documentation for date of: 11/21/24 Subjective Subjective Interval history: 11/20/2024: Pt examined at bedside today. Says that she has been having some epigastric pain and it has radiated to her lower abdomen. She says that she has not had these feelings before, however she deals with chronic constipation which she takes MiraLAX for. She says she got a colonoscopy recently, however does not know what the results of this is. Says she still smokes cigs. No other complaints at this time. 11/21/2024: Patient examined at bedside today. No acute overnight events. Patient reports she is doing okay, says her abdominal pain has been controlled. She says that she remembers that she did her colonoscopy last year in [place]. She has no chest pain or shortness of breath at this time. Has not vomited. No other complaints at this time Exam Vital Signs Temp Pulse Resp BP Pulse Ox O2 Del Method 98.2 F 100 18 121/78 96 Room Air 11/21/24 08:00 11/21/24 08:00 11/21/24 08:00 11/21/24 08:00 11/21/24 08:00 11/21/24 08:00 Narrative Exam General: AAOx3, NAD, obese female HEENT: Moist mucous membranes, conjunctiva clear, EOMI, PERRLA, Cardiovascular: S1, S2, radial pulses +2 bilat, RRR Pulmonary: CTAB bilat no cough, no wheezing GI: Tenderness palpitation, no guarding, rigidity, rebound tenderness or distension Extremities: No presence of trace or pitting edema in lower extremities bilaterally, dorsalis pedis pulses +2 bilaterally Neuro: AAOx3, no focal motor or sensory deficits in the UE or LE bilat Psych: Good judgement, thought and behavior Objective Labs 11/21/24 04:49 11/21/24 04:49 Labs: Laboratory Results - last 24 hr 11/20/24 11/21/24 04:11 04:49 WBC 8.7 RBC 3.77 L Hgb 9.8 L Hct 30.1 L MCV 80 MCH 26.0 MCHC 32.6 RDW Std Deviation 45.7 Plt Count 255 D Neut % (Auto) 82 H Lymph % (Auto) 9 L Luna % (Auto) 5 Eos % (Auto) 3 Baso % (Auto) 0 Neut # (Auto) 7.1 Lymph # (Auto) 0.8 L Luna # (Auto) 0.4 Eos # (Auto) 0.3 Baso # (Auto) 0.0 Immature Gran # (Auto) 0.04 H Absolute Nucleated RBC 0.00 Immature Gran % 1 H Nucleated RBC % 0 PT 11.8 10.9 INR 1.1 1.0 APTT 37.0 H 32.6 Sodium 138 Potassium 3.6 Chloride 101 Carbon Dioxide 28.0 Anion Gap 9 BUN 6 L Creatinine 0.6 Estim Creat Clear Calc 136.2 eGFR > 60 BUN/Creatinine Ratio 10 L Glucose 142 H Calculated Osmolality 275 Calcium 9.0 Corrected Calcium 9.0 Phosphorus 2.1 L Magnesium 1.8 Total Bilirubin 0.4 AST 12 ALT 18 Alkaline Phosphatase 153 H Total Protein 6.5 Albumin 4.0 D Globulin 2.5 Albumin/Globulin Ratio 1.6 Quality Measures Quality Measures none Assessment & Plan Assessment Current Active Medications: Generic Name Dose Route Start Last Admin Trade Name Freq PRN Reason Stop Dose Admin Acetaminophen 650 mg 11/19/24 22:42 Acetaminophen 325 Mg Tablet PO 12/19/24 22:41 Q6H PRN PAIN SCALE 1-3 (mild Acetaminophen 650 mg 11/19/24 22:42 Acetaminophen 325 Mg Tablet PO 12/19/24 22:41 Q6H PRN Fever >100 Hydrocodone Bitart/Acetaminophen 1 tab 11/19/24 22:42 11/21/24 07:21 Hydrocodone/Apap 10/325 Tab PO 11/24/24 22:41 1 tab Q4HR PRN Administration PAIN SCALE 7-10 (Severe Amlodipine Besylate 10 mg 11/19/24 22:55 11/20/24 00:47 Amlodipine Besylate 5 Mg Tablet PO 12/19/24 22:54 Not Given QDAY JOE Aripiprazole 10 mg 11/20/24 09:00 11/21/24 09:22 Aripiprazole 5 Mg Tablet PO 12/20/24 08:59 10 mg QDAY JOE Administration Atorvastatin Calcium 20 mg 11/20/24 21:00 11/20/24 20:19 Atorvastatin Calcium 20 Mg Tablet PO 12/20/24 20:59 20 mg HS JOE Administration Buspirone HCl 30 mg 11/20/24 09:00 11/21/24 09:21 Buspirone Hcl 5 Mg Tablet PO 12/20/24 08:59 30 mg BID JOE Administration Clozapine 250 mg 11/20/24 21:00 11/20/24 20:19 Clozapine 50 Mg Tablet PO 12/20/24 20:59 250 mg HS JOE Administration Protocol Fluoxetine HCl 60 mg 11/20/24 09:00 11/21/24 09:21 Fluoxetine Hcl 10 Mg Capsule PO 12/20/24 08:59 60 mg QDAY JOE Administration Piperacillin/Tazobactam/Dextrose 50 mls @ 12.5 mls/hr 11/20/24 14:00 11/21/24 05:10 Zosyn IV 11/27/24 05:59 12.5 mls/hr Q8HR JOE Administration Levothyroxine Sodium 50 mcg 11/20/24 06:00 11/21/24 05:10 Levothyroxine Sodium 25 Mcg Tablet PO 12/20/24 05:59 Not Given ACBR JOE Lisinopril 10 mg 11/19/24 23:00 Lisinopril 2.5 Mg Tablet PO 12/19/24 22:59 QDAY JOE Metoprolol Tartrate 100 mg 11/19/24 23:00 Metoprolol Tartrate 25 Mg Tablet PO 12/19/24 22:59 BID JOE Ondansetron HCl 4 mg 11/19/24 22:42 Ondansetron Inj 2 Mg/Ml Inj 2 Ml IV 12/19/24 22:41 Q6H PRN NAUSEA OR VOMITING Protocol Oxcarbazepine 150 mg 11/20/24 09:00 11/21/24 09:23 Oxcarbazepine 150 Mg Tablet (Non-Formulary) PO 12/20/24 08:59 150 mg BID JOE Administration Oxycodone/Acetaminophen 1 tab 11/19/24 22:42 Oxycodone/Apap 5/325 Tablet PO 11/24/24 22:41 Q6H PRN PAIN SCALE 4-6 (Moderate Pantoprazole Sodium 40 mg 11/20/24 09:00 11/21/24 09:23 Pantoprazole Inj 40 Mg Vial IVP 12/20/24 08:59 40 mg QDAY JOE Administration Polyethylene Glycol 17 gm 11/20/24 09:00 11/21/24 09:22 Polyethylene Glycol 17 Gm Packet PO 12/20/24 08:59 17 gm QDAY JOE Administration Plan Assessment 54-year-old female PMHx of HTN, HLD, obesity, hypothyroidism, active tobacco smoker, depression and generalized anxiety, senting with acute abdominal pain. Admitted for pelvic abscess and IV ANTIBIOTICS. #Pelvic abscess #Acute abdominal pain #Chronic constipation #GERD Presenting with 3 days of generalized abdominal pain, 9/10 scale, nausea, fever, and chills. Found to have rectosigmoid inflammation and 5.2 cm pelvic abscess possibly related to diverticular perforation. Abdominal ultrasound showed cholelithiasis but no cholecystitis. He has appointment with general surgery in [place] for next month, currently pending preop clearance. She had colonoscopy done 1 year ago in [place] but never followed up on results. She has chronic constipation for which she takes stool softeners and stimulants daily. On average, BM every third day, last BM 3 days ago and was normal, nonbloody. General surgery recommended IV ANTIBIOTICS, no surgical intervention at this time. No abnormal weight loss, vomiting or diarrhea or GI bleed. No weight loss or night sweats Pt could be having Diverticulitis and could of developed an abscess Could be a component of IBD At this point based off radiology imaging, air-fluid abscess is not amendable to drainage Surgery is not going to intervene at this time with surgical intervention Will consider reimaging with additional antibiotic treatment Plan: - General surgery consulted, appreciate recs ? Pain control. ? Started MIRALAX daily. ? Avoid suppository or stool stimulants in settings of possible diverticular disease ? Continue ZOSYN 3.375 mg q.6h. (2/3 to present) ? Continue PROTONIX 40 mg daily ?*GI consult #HTN, HLD #Chronic lower extremity edema #? Chronic lymphedema Previously on LASIX 20 mg daily for lower extremity edema, PCP stopped 1 month ago. On METOPROLOL 100 mg BID but denies history of heart failure. States she had an echo a year ago which was normal. No history of CHF. Had an echo done a year ago which was normal. Lower extremity edema on exam. Lung sounds are clear. Currently normotensive. HR 80s. Will hold home antihypertensives. Will resume as indicated. Plan: ? Resume home ATORVASTATIN 20 mg daily ? Holding home METOPROLOL 100 mg BID ? Holding home LISINOPRIL 10 mg daily ? Holding home AMLODIPINE 10 mg daily ? Consider heart failure workup if indicated. #Hypothyroidism ? Resume home LEVOTHYROXINE 50 mcg AC BR #Seasonal allergies ? Continued MONTELUKAST 10 mg daily #Depression #MARY ? Resumed home BUSPIRONE 30 mg BID ? Resumed home OXCARBAZEPINE 300 mg daily ? Resumed home FLUOXETINE 60 mg daily ? Resumed home CLOZAPINE 250 mg HS #Active tobacco user Smokes 3 liters daily for 3 days. ? Consider starting NICOTINE patch as needed #Health Maintenance Disposition: Med Surg DVT prophylaxis: SCDs GI prophylaxis: Protonix heparin subcu Diet: Peptic ulcer CODE STATUS: Full Patient seen and care discussed with my senior resident, Dr. Calvo , and my attending physician, Dr. Shivam Hussein, PGY-1
--- NOTE | 2024-11-21 10:20 | CHAP ---
Visited with Patient and gave encouragement and prayer.
--- NOTE | 2024-11-21 10:36 | PC.NURSE ---
called to inquire of planned drainage procedure. No answer at this time.
[2024-11-21] MEDS: NAPH,KPH MBDB 1 PACKET (1.5 GM) PO (10:43)
[2024-11-21] MEDS: POT PHOS 15 mMol in NS 250 ML 15 MMOL/250 ML BAG 62.5 MMOL IV (11:13)
[2024-11-21] MEDS: oxyCODONE/APAP 5/325 TABLET 1 TAB PO ×2 (17:12→23:15)
[2024-11-21] MEDS: guaiFENesin SYRUP 200 MG/10 ML UDC 100 MG PO (20:53)
[2024-11-21] MEDS: CLOZAPINE 50 MG 250 MG PO (20:54)
[2024-11-21] MEDS: ATORVASTATIN CALCIUM 20 MG TABLET PO (20:57)
--- NOTE | 2024-11-21 22:11 | PD.IMCONS ---
HPI Data of Consult Requesting Physician: Yahaira Langley MD Primary Care Provider: TONYA Deras Consult Narrative Reason for consult: pain abdomen, abnormal CTAP, pelvic abscess 5.2 cm History of present illness: 54 years of female with known history of cholelithiasis presented to the hospital with bout of acute abdominal pain that became unbearable Started in the upper abdomen but localized to the lower abdomen WBC count on admission was 18.2 with a hemoglobin hematocrit 10.[address] scan of the abdomen pelvis without contrast showed marked inflammatory changes in the region of the sigmoid colon and a 5.2 cm abscess and collection of fluid in that region Patient was started on IV Zosyn and admitted She has a history of essential hypertension hyperlipidemia hypothyroidism depression anxiety and cholelithiasis cc:: cc: Yahaira Langley MD Review of Systems Review of Systems Systems Reviewed: All systems reviewed, normal except as documented Past Medical History Surgical History OTHER SURGICAL HX: As in the history of present illness Meds Home Medications and Allergies Home Medications ?Medication ?Instructions ?Recorded ?Confirmed ?Type metoprolol tartrate 100 mg tablet 100 mg PO BID 01/18/19 11/20/24 History amlodipine 10 mg tablet 10 mg PO QDAY 08/14/21 11/20/24 History clozapine 100 mg tablet 250 mg PO HS 08/14/21 11/20/24 History lisinopril 10 mg tablet 10 mg PO QDAY 08/14/21 11/20/24 History aripiprazole 10 mg tablet 10 mg PO QDAY 01/06/24 11/20/24 History buspirone 30 mg tablet 30 mg PO BID 01/06/24 11/20/24 History docusate sodium 250 mg capsule 250 mg PO QDAY 01/06/24 11/20/24 History fluoxetine 60 mg tablet 60 mg PO QDAY 01/06/24 11/20/24 History montelukast 10 mg tablet 10 mg PO QDAY 01/06/24 11/20/24 History omeprazole 40 mg capsule,delayed 40 mg PO QDAY 01/06/24 11/20/24 History release oxcarbazepine 150 mg tablet 150 mg PO BID 01/06/24 11/20/24 History simvastatin 20 mg tablet 20 mg PO QPM 01/06/24 11/20/24 History albuterol sulfate 90 mcg/actuation 2 puff inhalation Q4H PRN 11/20/24 11/20/24 History aerosol inhaler shortness of breath umeclidinium 62.5 mcg-vilanterol 1 inh inhalation Q24H 11/20/24 11/20/24 History 25 mcg/actuation powdr for inhalation (Anoro Ellipta) Allergies Allergy/AdvReac Type Severity Reaction Status Date / Time No Known Allergies Allergy Verified 11/19/24 09:23 Exam Vital Signs Temp Pulse Resp BP Pulse Ox O2 Del Method 97.7 F 82 17 103/83 94 L Room Air 11/21/24 20:00 11/21/24 20:00 11/21/24 20:00 11/21/24 20:00 11/21/24 20:00 11/21/24 20:00 Constitutional Comments: Alert oriented Routine Respiratory Exam Comments: Normal to auscultation Routine Abdominal Exam Comments: Left mid quadrant left lower quadrant tenderness Results Labs 11/21/24 04:49 11/21/24 04:49 Labs: Short CBC 11/21/24 Range/Units 04:49 WBC 8.7 (3.6-11.0) Thou/mm3 Hgb 9.8 L (12.0-16.0) g/dL Hct 30.1 L (36.0-46.0) % Plt Count 255 D (140-440) Thou/mm3 BMP 11/21/24 04:49 Sodium 138 Potassium 3.6 Chloride 101 Carbon Dioxide 28.0 BUN 6 L Creatinine 0.6 Glucose 142 H Calcium 9.0 Liver Function 11/21/24 Range/Units 04:49 Total Bilirubin 0.4 (0.3-1.2) mg/dL AST 12 (0-34) U/L ALT 18 (10-49) U/L Alkaline Phosphatase 153 H (46-116) U/L Albumin 4.0 D (3.5-5.0) gm/dL Assessment and Plan Additional Assessment & Plan Additional Plan: # Acute left-sided diverticulitis with microperforation which most likely sealed off and a 5.2 cm peridiverticular abscess Plan Continue IV Zosyn Interventional radiology consultation for catheter drainage of the abscess Pain control Will follow the patient Other medical problems include # Essential hypertension # Hyperlipidemia # Gouty arthritis # Hypothyroidism # Cholelithiasis # Depression with anxiety Continue current management Thank you very much for the opportunity to participate in the care of this patient
[2024-11-22] VITALS (8 sets, daily range): BP systolic 111–129; BP diastolic 66–87; PULSE 84–118; RESP 17–22; TEMP 36.1–36.6; O2SAT 91–100
[2024-11-22] MEDS: PIPER/TAZO 3.375 GM 50 ML IV ×3 (05:39→21:31)
[2024-11-22] MEDS: LEVOTHYROXINE SODIUM 25 MCG TABLET 50 MCG PO (05:39)
[2024-11-22 05:51] LABS: Basophils % (Auto) 0 % (0-2.5); Eosinophils # (Auto) 0.3 Thou/mm3 (0.0-0.5); Eosinophils % (Auto) 5 % (0-10); Hematocrit 28.2 % (36.0-46.0); Hemoglobin 9.2 g/dL (12.0-16.0); Immature Granulocytes % (Auto) 1 % (0-0); Immature Granulocytes Auto 0.03 Thou/mm3 (0.00-0.00); Lymphocytes # (Auto) 1.1 Thou/mm3 (1.0-4.8); Lymphocytes % (Auto) 16 % (10-50); Mean Corpuscular HGB Conc 32.6 g/dl (31.0-37.0); Mean Corpuscular Hemoglobin 25.8 pg (25.0-35.0); Mean Corpuscular Volume 79 fL (80-100); Monocytes # (Auto) 0.5 Thou/mm3 (0.0-0.8); Monocytes % (Auto) 7 % (0-12); Neutrophils # (Auto) 4.6 Thou/mm3 (1.8-7.7); Neutrophils % (Auto) 71 % (37-80); Nucleated Red Blood Cell % 0 /100 WBC (0); Platelet Count 284 Thou/mm3 (140-440); Red Blood Count 3.57 Miln/mm3 (4.00-5.20); White Blood Count 6.4 Thou/mm3 (3.6-11.0)
[2024-11-22 06:33] LABS: Alanine Aminotransferase 17 U/L (10-49); Albumin, Serum 3.7 gm/dL (3.5-5.0); Albumin/Globulin Ratio 1.5 (1.2-2.2); Alkaline Phosphatase 141 U/L (46-116); Anion Gap 9 (7-16); Aspartate Amino Transferase 13 U/L (0-34); BUN/Creatinine Ratio 9 Ratio (12-20); Bilirubin,Total 0.4 mg/dL (0.3-1.2); Blood Urea Nitrogen 6 mg/dL (9-23); Calcium 8.6 mg/dL (8.3-10.6); Calcium (Corrected) 8.8 mg/dL (8.5-10.1); Carbon Dioxide 28.4 mMol/L (20.0-31.0); Chloride 102 mMol/L (98-107); Creatinine (Component) 0.7 mg/dL (0.6-1.3); Estimated Creatinine Clearance 116.8 mL/min (>60); Globulin 2.4 gm/dL (2.3-3.5); Glucose 118 mg/dL (74-106); Osmolality,Calculated 276 (275-295); Phosphorous 3.7 mg/dL (2.4-5.1); Potassium 3.5 mMol/L (3.4-5.1); Sodium 139 mMol/L (136-145); Total Protein 6.1 gm/dL (5.7-8.2); eGFR > 60 See Note
[2024-11-22] MEDS: ARIPiprazole 5 MG TABLET 10 MG PO (08:28)
[2024-11-22] MEDS: POLYETHYLENE GLYCOL 17 GM PACKET PO (08:28)
[2024-11-22] MEDS: PANTOPRAZOLE INJ 40 MG VIAL IVP (08:28)
[2024-11-22] MEDS: FLUoxetine HCL 10 MG CAPSULE 60 MG PO (08:28)
[2024-11-22] MEDS: BusPIRone HCL 5 MG TABLET 30 MG PO (08:28)
[2024-11-22] MEDS: OXCARBazepine 150 MG TABLET (NON-FORMULARY) PO (08:30)
[2024-11-22] MEDS: ALBUTEROL/IPRATROPIUM (Duoneb) RT SOL 3 ML NEBU INH ×2 (09:09→11:03)
--- NOTE | 2024-11-22 10:44 | CHAP ---
Visited briefly with patient and gave words of comfort and encouragement and a prayer.
[2024-11-22] MEDS: Milk Of Magnesia Susp 30 ML UDC PO (10:46)
[2024-11-22] MEDS: bisacodyL 5 MG TABEC PO (11:04)
--- NOTE | 2024-11-22 12:46 | EKG_ITS ---
[facility] Test Date: 2024-11-22 Pat Name: CAREMN MAYFIELD [facility] Internship Coordinator: KRISTEN : 1970 Requested By: Duglas Hussein Order Number: [id number] Reading MD: Duglas Hussein Measurements Intervals [place] Rate: 109 P: 54 NV: 173 QRS: 67 QRSD: 75 T: 30 QT: 350 QTc: 473 Interpretive Statements SINUS TACHYCARDIA ABNORMAL RHYTHM ECG Compared to ECG 01/05/2024 15:08:08 Sinus rhythm no longer present ST (T wave) deviation no longer present /store/S0/[id number]/[id number].pdf
--- NOTE | 2024-11-22 12:48 | PC.NURSE ---
Pt complaining of SOB per pt relieved after deep breaths oxygen at 96% on RA. notified dr hale. Per xray and ekg will be ordered. vs within normal range pt comfortable at this time.
[2024-11-22] MEDS: GLYCERIN, ADULT 1 EA SUPP 1 EACH PR (13:04)
--- NOTE | 2024-11-22 13:16 | PD.IMPROG ---
Documentation for date of: 11/22/24 Subjective Subjective Interval history: Patient evaluated In the process of his small bowel follow-through Exam Vital Signs Temp Pulse Resp BP Pulse Ox O2 Del Method 97.1 F 113 H 18 129/87 H 97 Room Air 11/22/24 12:00 11/22/24 12:00 11/22/24 12:00 11/22/24 12:00 11/22/24 12:00 11/22/24 12:00 Objective Labs 11/22/24 04:39 11/22/24 04:39 Labs: Laboratory Results - last 24 hr 11/22/24 04:39 WBC 6.4 RBC 3.57 L Hgb 9.2 L Hct 28.2 L MCV 79 L MCH 25.8 MCHC 32.6 RDW Std Deviation 45.0 Plt Count 284 Neut % (Auto) 71 Lymph % (Auto) 16 [place] % (Auto) 7 Eos % (Auto) 5 Baso % (Auto) 0 Neut # (Auto) 4.6 Lymph # (Auto) 1.1 [place] # (Auto) 0.5 Eos # (Auto) 0.3 Baso # (Auto) 0.0 Immature Gran # (Auto) 0.03 H Absolute Nucleated RBC 0.00 Immature Gran % 1 H Nucleated RBC % 0 Sodium 139 Potassium 3.5 Chloride 102 Carbon Dioxide 28.4 Anion Gap 9 BUN 6 L Creatinine 0.7 Estim Creat Clear Calc 116.8 eGFR > 60 BUN/Creatinine Ratio 9 L Glucose 118 H Calculated Osmolality 276 Calcium 8.6 Corrected Calcium 8.8 Phosphorus 3.7 Magnesium 2.0 Total Bilirubin 0.4 AST 13 ALT 17 Alkaline Phosphatase 141 H Total Protein 6.1 Albumin 3.7 Globulin 2.4 Albumin/Globulin Ratio 1.5 Impressions Impression: # Pelvic collection of fluid most likely pelvic abscess due to most likely microperforation of the colon possibly small bowel SBFT in progress Assessment & Plan A&P Narrative # Acute left-sided diverticulitis with microperforation which most likely sealed off and a 5.2 cm peridiverticular abscess Plan Continue IV Zosyn Interventional radiology consultation for catheter drainage of the abscess Pain control Will follow the patient Other medical problems include # Essential hypertension # Hyperlipidemia # Gouty arthritis # Hypothyroidism # Cholelithiasis # Depression with anxiety Continue current management Thank you very much for the opportunity to participate in the care of this patient Time Spent With Patient Time: Total time spent is greater than 50% in coordination of care (as documented) at patient's floor/unit and/or counseling patient:
--- NOTE | 2024-11-22 13:23 | XR_ITS ---
Examination: Abdomen AP single view Technique: AP portable supine abdomen, single view Exam date and time: November 22, 2024 1350 hours INDICATIONS: Constipation this week shortness of breath 4 days. FINDINGS: Multiple air distended small bowel loops in the midabdomen No free air No abnormal calcific densities IMPRESSION: Suspicious for small bowel obstruction, consider Gastrografin small bowel series follow-up
--- NOTE | 2024-11-22 14:19 | PC.SS ---
rounding note: Patient to d/c home today.
--- NOTE | 2024-11-22 15:01 | PC.NURSE ---
Pt complained of distendent abdomen. Notified dr Ardon per will order imaging to assess d/t pt having failed bms after multiple medication interventions to promote bm
[2024-11-22] MEDS: oxyCODONE/APAP 5/325 TABLET 1 TAB PO (15:11)
--- NOTE | 2024-11-22 15:20 | XR_ITS ---
Examination: Small bowel series Abdomen AP supine 5 views Examination time: November 22, 2024 1539 hours INDICATIONS: Abdominal pain and distention this week TECHNIQUE AND FINDINGS: The patient received 120 cc Gastrografin with 5 minute one-hour three-hour films obtained Contrast in distended small bowel loops IMPRESSION: Small bowel obstruction pattern Recommend follow-up KUBs 9:00 PM, 11:00 PM 3:00 AM and 7:00 AM
[2024-11-22] MEDS: MORPHINE SULF INJ 10 MG/ML VIAL 2 MG IVP ×2 (18:20→22:36)
--- NOTE | 2024-11-22 19:04 | PD.SURPROG ---
Documentation for date of: 11/22/24 Subjective Subjective Narrative: Patient was seen today because the resident was telling me that patient is developing a small bowel obstruction. Patient was feeling better with antibiotic therapy but this morning she started vomiting. She also started having abdominal distention. She has pain that is in the upper abdomen not necessarily in the lower abdomen at the present time Exam Vital Signs Temp Pulse Resp BP Pulse Ox O2 Del Method 97.4 F 106 H 19 115/72 93 L Room Air 11/22/24 16:00 11/22/24 16:11/22/24 16:00 11/22/24 16:00 11/22/24 16:00 11/22/24 16:00 Your vital signs revealed tachycardia with heart rate of 106 Routine Abdominal Exam Comments: Abdominal examination shows some tenderness in the upper abdomen both upper quadrants Results Results: Laboratory Laboratory Narrative: Laboratory results are within normal limits Results: Imaging Imaging narrative: Abdominal x-ray showed some dilated loops of small bowel which may be due to obstruction or ileus. Small bowel series has been ordered Assessment & Plan Assessment Additional comments: Pression: Patient most probably has an ileus secondary to infective process in the pelvis Plan Plan: Patient is very anxious and agitated. We will wait for the small bowel follow-through to be completed.
--- NOTE | 2024-11-22 19:57 | PD.RESPRO ---
Documentation for date of: 11/22/24 Subjective Subjective Interval history: 11/20/2024: Pt examined at bedside today. Says that she has been having some epigastric pain and it has radiated to her lower abdomen. She says that she has not had these feelings before, however she deals with chronic constipation which she takes MiraLAX for. She says she got a colonoscopy recently, however does not know what the results of this is. Says she still smokes cigs. No other complaints at this time. 11/21/2024: Patient examined at bedside today. No acute overnight events. Patient reports she is doing okay, says her abdominal pain has been controlled. She says that she remembers that she did her colonoscopy last year in [place]. She has no chest pain or shortness of breath at this time. Has not vomited. No other complaints at this time 11/22/2024: Pt examined at bedside today by. No acute overnight events. Patient reports she is doing okay her abdominal pain has been fine. She was post get later discharged today, however patient was pending bowel movement. With additional tries of other laxatives and enema patient was not able to a bowel movement. X-ray was ordered which showed possible small bowel obstruction and Gastrografin small bowel series was ordered. Patient's white count today is 6.4, hemoglobin 9.2, BUN/creatinine 6 and 0.7 respectively, potassium 3.5, magnesium 2.0, sodium 139. Exam Vital Signs Temp Pulse Resp BP Pulse Ox O2 Del Method 97.4 F 106 H 19 115/72 93 L Room Air 11/22/24 16:00 11/22/24 16:11/22/24 16:00 11/22/24 16:11/22/24 16:11/22/24 16:00 Narrative Exam General: AAOx3, NAD, obese female HEENT: Moist mucous membranes, conjunctiva clear, EOMI, PERRLA, Cardiovascular: S1, S2, radial pulses +2 bilat, RRR Pulmonary: CTAB bilat no cough, no wheezing GI: Tenderness to palpitation, no guarding, rigidity, rebound tenderness or distension Extremities: No presence of trace or pitting edema in lower extremities bilaterally, dorsalis pedis pulses +2 bilaterally Neuro: AAOx3, no focal motor or sensory deficits in the UE or LE bilat Psych: Good judgement, thought and behavior Objective Labs 11/23/24 04:13 11/23/24 04:13 Labs: Laboratory Results - last 24 hr 11/22/24 04:39 WBC 6.4 RBC 3.57 L Hgb 9.2 L Hct 28.2 L MCV 79 L MCH 25.8 MCHC 32.6 RDW Std Deviation 45.0 Plt Count 284 Neut % (Auto) 71 Lymph % (Auto) 16 Aiken % (Auto) 7 Eos % (Auto) 5 Baso % (Auto) 0 Neut # (Auto) 4.6 Lymph # (Auto) 1.1 Aiken # (Auto) 0.5 Eos # (Auto) 0.3 Baso # (Auto) 0.0 Immature Gran # (Auto) 0.03 H Absolute Nucleated RBC 0.00 Immature Gran % 1 H Nucleated RBC % 0 Sodium 139 Potassium 3.5 Chloride 102 Carbon Dioxide 28.4 Anion Gap 9 BUN 6 L Creatinine 0.7 Estim Creat Clear Calc 116.8 eGFR > 60 BUN/Creatinine Ratio 9 L Glucose 118 H Calculated Osmolality 276 Calcium 8.6 Corrected Calcium 8.8 Phosphorus 3.7 Magnesium 2.0 Total Bilirubin 0.4 AST 13 ALT 17 Alkaline Phosphatase 141 H Total Protein 6.1 Albumin 3.7 Globulin 2.4 Albumin/Globulin Ratio 1.5 Quality Measures Quality Measures none Assessment & Plan Assessment Current Active Medications: Generic Name Dose Route Start Last Admin Trade Name Freq PRN Reason Stop Dose Admin Acetaminophen 650 mg 11/19/24 22:42 Acetaminophen 325 Mg Tablet PO 12/19/24 22:41 Q6H PRN PAIN SCALE 1-3 (mild Acetaminophen 650 mg 11/19/24 22:42 Acetaminophen 325 Mg Tablet PO 12/19/24 22:41 Q6H PRN Fever >100 Amlodipine Besylate 10 mg 11/19/24 22:55 11/20/24 00:47 Amlodipine Besylate 5 Mg Tablet PO 12/19/24 22:54 Not Given QDAY JOE Aripiprazole 10 mg 11/20/24 09:00 11/22/24 08:28 Aripiprazole 5 Mg Tablet PO 12/20/24 08:59 10 mg QDAY JOE Administration Atorvastatin Calcium 20 mg 11/20/24 21:00 11/21/24 20:57 Atorvastatin Calcium 20 Mg Tablet PO 12/20/24 20:59 20 mg HS JOE Administration Buspirone HCl 30 mg 11/20/24 09:00 11/22/24 08:28 Buspirone Hcl 5 Mg Tablet PO 12/20/24 08:59 30 mg BID JOE Administration Clozapine 250 mg 11/20/24 21:00 11/21/24 20:54 Clozapine 50 Mg Tablet PO 12/20/24 20:59 250 mg HS JOE Administration Protocol Fluoxetine HCl 60 mg 11/20/24 09:00 11/22/24 08:28 Fluoxetine Hcl 10 Mg Capsule PO 12/20/24 08:59 60 mg QDAY JOE Administration Hydromorphone HCl 1 mg 11/22/24 18:45 Hydromorphone Inj 2 Mg/Ml Vial IVP 11/27/24 18:44 Q4HR PRN Pain 7-10 Piperacillin/Tazobactam/Dextrose 50 mls @ 12.5 mls/hr 11/20/24 14:00 11/22/24 13:35 Zosyn IV 11/27/24 05:59 12.5 mls/hr Q8HR JOE Administration Levothyroxine Sodium 50 mcg 11/20/24 06:00 11/22/24 05:39 Levothyroxine Sodium 25 Mcg Tablet PO 12/20/24 05:59 50 mcg ACBR JOE Administration Lisinopril 10 mg 11/19/24 23:00 Lisinopril 2.5 Mg Tablet PO 12/19/24 22:59 QDAY JOE Metoprolol Tartrate 100 mg 11/19/24 23:00 Metoprolol Tartrate 25 Mg Tablet PO 12/19/24 22:59 BID JOE Morphine Sulfate 2 mg 11/21/24 13:57 11/22/24 18:20 Morphine Sulf Inj 10 Mg/Ml Vial IVP 11/26/24 13:56 2 mg Q4HR PRN Administration Pain 7-10 Ondansetron HCl 4 mg 11/19/24 22:42 Ondansetron Inj 2 Mg/Ml Inj 2 Ml IV 12/19/24 22:41 Q6H PRN NAUSEA OR VOMITING Protocol Oxcarbazepine 150 mg 11/20/24 09:00 11/22/24 08:30 Oxcarbazepine 150 Mg Tablet (Non-Formulary) PO 12/20/24 08:59 150 mg BID JOE Administration Oxycodone/Acetaminophen 1 tab 11/19/24 22:42 11/22/24 15:11 Oxycodone/Apap 5/325 Tablet PO 11/24/24 22:41 1 tab Q6H PRN Administration PAIN SCALE 4-6 (Moderate Pantoprazole Sodium 40 mg 11/20/24 09:00 11/22/24 08:28 Pantoprazole Inj 40 Mg Vial IVP 12/20/24 08:59 40 mg QDAY JOE Administration Polyethylene Glycol 17 gm 11/20/24 09:00 11/22/24 08:28 Polyethylene Glycol 17 Gm Packet PO 12/20/24 08:59 17 gm QDAY JOE Administration Plan Assessment 54-year-old female PMHx of HTN, HLD, obesity, hypothyroidism, active tobacco smoker, depression and generalized anxiety, senting with acute abdominal pain. Admitted for pelvic abscess and IV ANTIBIOTICS. #? Small bowel obstruction #Pelvic abscess #Acute abdominal pain #Chronic constipation #GERD Presenting with 3 days of generalized abdominal pain, 9/10 scale, nausea, fever, and chills. Found to have rectosigmoid inflammation and 5.2 cm pelvic abscess possibly related to diverticular perforation. Abdominal ultrasound showed cholelithiasis but no cholecystitis. He has appointment with general surgery in [place] for next month, currently pending preop clearance. She had colonoscopy done 1 year ago in [place] but never followed up on results. She has chronic constipation for which she takes stool softeners and stimulants daily. On average, BM every third day, last BM 3 days ago and was normal, nonbloody. General surgery recommended IV ANTIBIOTICS, no surgical intervention at this time. No abnormal weight loss, vomiting or diarrhea or GI bleed. No weight loss or night sweats Pt could be having Diverticulitis and could of developed an abscess Could be a component of IBD At this point based off radiology imaging, air-fluid abscess is not amendable to drainage Surgery is not going to intervene at this time with surgical intervention Will consider reimaging with additional antibiotic treatment Due to patient not having bowel movement, KUB was ordered which showed possible small bowel obstruction pattern Gastrografin series was ordered to see if patient to improve Patient may need surgical intervention at some point if Gastrografin does not improve patient's symptoms Patient has only vomited once Plan: - General surgery consulted, appreciate recs ? Pain control. ? Started MIRALAX daily. ? Avoid suppository or stool stimulants in settings of possible diverticular disease ? Continue ZOSYN 3.375 mg q.6h. (2/3 to present) ? Continue PROTONIX 40 mg daily ? Dilaudid 1 mg every 4 hours as needed ? GI consult, appreciate recs #HTN, HLD #Chronic lower extremity edema #? Chronic lymphedema Previously on LASIX 20 mg daily for lower extremity edema, PCP stopped 1 month ago. On METOPROLOL 100 mg BID but denies history of heart failure. States she had an echo a year ago which was normal. No history of CHF. Had an echo done a year ago which was normal. Lower extremity edema on exam. Lung sounds are clear. Currently normotensive. HR 80s. Will hold home antihypertensives. Will resume as indicated. Plan: ? Resume home ATORVASTATIN 20 mg daily ? Holding home METOPROLOL 100 mg BID ? Holding home LISINOPRIL 10 mg daily ? Holding home AMLODIPINE 10 mg daily ? Consider heart failure workup if indicated. #Hypothyroidism ? Resume home LEVOTHYROXINE 50 mcg AC BR #Seasonal allergies ? Continued MONTELUKAST 10 mg daily #Depression #MARY ? Resumed home BUSPIRONE 30 mg BID ? Resumed home OXCARBAZEPINE 300 mg daily ? Resumed home FLUOXETINE 60 mg daily ? Resumed home CLOZAPINE 250 mg HS #Active tobacco user Smokes 3 liters daily for 3 days. ? Consider starting NICOTINE patch as needed #Health Maintenance Disposition: Med Surg DVT prophylaxis: SCDs GI prophylaxis: Protonix heparin subcu Diet: Peptic ulcer CODE STATUS: Full Patient seen and care discussed with my senior resident, Dr. Calvo , and my attending physician, Dr. Berenice Hussein, PGY-1 Attending Provider Attestation/Addendum I reviewed labs, imaging, EKG, home medications and prior available records. Face to face evaluation was performed by me. I have personally examined the patient and discussed assessment and plan with the IM team. I reviewed the resident note and agree with the plan with exceptions as below. Pelvic abscess: Found to have rectosigmoid inflammation and 5.2 cm pelvic abscess possibly related to diverticular perforation. Discussed with IR: The abscess is air-filled for which it is difficult to drain. Recommended IV antibiotics. Discussed with general surgery: No indication for surgery at this time. Continue IV antibiotics. Possible SBO: New complication. Patient did not have a bowel movement. Ordered abdominal x-ray that showed SBO pattern. Ordered Gastrografin study. Keep the patient NPO.
--- NOTE | 2024-11-22 21:00 | XR_ITS ---
Examination: Abdomen AP single view Technique: AP portable supine abdomen, single view Exam date and time: November 22, 20242057 hours INDICATIONS: Comparison small bowel series November 22, 2024 1545 hours, abdominal pain and distention this week, 5 hour delayed film FINDINGS: Contrast now present in the colon IMPRESSION: Contrast now present in the colon, negative for complete small bowel obstruction Only one additional film is needed at 11:00 PM
--- NOTE | 2024-11-22 23:00 | XR_ITS ---
Examination: Abdomen AP single view Technique: AP portable supine abdomen, single view Exam date and time: November 22, 2024 11:10 PM INDICATIONS: Abdominal pain and distention this week, 7 hour delayed film postmenopausal series FINDINGS: Contrast appears to be in the colon on this study IMPRESSION: Findings most consistent with incomplete small bowel obstruction Recommend one additional follow-up film at 7:00 AM
[2024-11-23] VITALS: BP 128/92; PULSE 118; RESP 18; TEMP 36.2; O2SAT 92
--- NOTE | 2024-11-23 | XR_ITS ---
Examination: Abdomen AP single view Technique: AP portable supine abdomen, single view Exam date and time: November 23, 2024 0835 hours INDICATIONS: Abdominal pain and distention this week, 20 hour delayed film post small bowel series FINDINGS: Contrast present largely in the colon IMPRESSION: Negative for complete small bowel obstruction
[2024-11-23 04:00] VITALS: BP 121/70; PULSE 96; RESP 17; TEMP 36.2; O2SAT 92
[2024-11-23] MEDS: PIPER/TAZO 3.375 GM 50 ML IV ×2 (05:36→14:35)
[2024-11-23 05:57] LABS: Basophils % (Auto) 0 % (0-2.5); Eosinophils # (Auto) 0.1 Thou/mm3 (0.0-0.5); Eosinophils % (Auto) 1 % (0-10); Hematocrit 33.2 % (36.0-46.0); Hemoglobin 10.5 g/dL (12.0-16.0); Immature Granulocytes % (Auto) 1 % (0-0); Immature Granulocytes Auto 0.08 Thou/mm3 (0.00-0.00); Lymphocytes # (Auto) 1.2 Thou/mm3 (1.0-4.8); Lymphocytes % (Auto) 14 % (10-50); Mean Corpuscular HGB Conc 31.6 g/dl (31.0-37.0); Mean Corpuscular Hemoglobin 25.1 pg (25.0-35.0); Mean Corpuscular Volume 79 fL (80-100); Monocytes # (Auto) 0.6 Thou/mm3 (0.0-0.8); Monocytes % (Auto) 7 % (0-12); Neutrophils # (Auto) 6.8 Thou/mm3 (1.8-7.7); Neutrophils % (Auto) 77 % (37-80); Nucleated Red Blood Cell # 0.03 Thou/mm3 (0.00-0.00); Nucleated Red Blood Cell % 0 /100 WBC (0); Platelet Count 368 Thou/mm3 (140-440); RDW Standard Deviation 45.6 fL (36.4-46.3); Red Blood Count 4.19 Miln/mm3 (4.00-5.20); White Blood Count 8.8 Thou/mm3 (3.6-11.0)
[2024-11-23 06:24] LABS: Alanine Aminotransferase 16 U/L (10-49); Albumin, Serum 4.2 gm/dL (3.5-5.0); Albumin/Globulin Ratio 1.8 (1.2-2.2); Alkaline Phosphatase 153 U/L (46-116); Anion Gap 10 (7-16); Aspartate Amino Transferase 15 U/L (0-34); BUN/Creatinine Ratio 11 Ratio (12-20); Bilirubin,Total 0.3 mg/dL (0.3-1.2); Blood Urea Nitrogen 8 mg/dL (9-23); Calcium 9.5 mg/dL (8.3-10.6); Calcium (Corrected) 9.5 mg/dL (8.5-10.1); Carbon Dioxide 31.2 mMol/L (20.0-31.0); Chloride 99 mMol/L (98-107); Creatinine (Component) 0.7 mg/dL (0.6-1.3); Estimated Creatinine Clearance 116.8 mL/min (>60); Globulin 2.4 gm/dL (2.3-3.5); Glucose 124 mg/dL (74-106); Magnesium 2.2 mg/dL (1.6-2.6); Osmolality,Calculated 278 (275-295); Phosphorous 4.2 mg/dL (2.4-5.1); Potassium 3.4 mMol/L (3.4-5.1); Sodium 140 mMol/L (136-145); Total Protein 6.6 gm/dL (5.7-8.2); eGFR > 60 See Note
[2024-11-23 08:00] VITALS: BP 129/74; PULSE 88; RESP 18; TEMP 37.2; O2SAT 97
[2024-11-23] MEDS: BusPIRone HCL 5 MG TABLET 30 MG PO (10:08)
[2024-11-23] MEDS: FLUoxetine HCL 10 MG CAPSULE 60 MG PO (10:08)
[2024-11-23] MEDS: ARIPiprazole 5 MG TABLET 10 MG PO (10:09)
[2024-11-23] MEDS: PANTOPRAZOLE INJ 40 MG VIAL IVP (10:09)
[2024-11-23] MEDS: METOCLOPRAMIDE 5 MG TABLET 10 MG PO (10:09)
[2024-11-23] MEDS: OXCARBazepine 150 MG TABLET (NON-FORMULARY) PO (10:16)
[2024-11-23] MEDS: oxyCODONE/APAP 5/325 TABLET 1 TAB PO (10:35)
--- NOTE | 2024-11-23 10:42 | ESDS_ITS ---
<Statement entered by Noam Selby MD - 11/24/24 08:17> Patient was examined with the team including attending physician. Note reviewed, I agree with the discharge plan as documented. - Noam Selby M.D. PGY2 Planned Discharge Date 11/22/24 DS: Providers Provider Date of admission: 11/19/24 22:42 Primary care physician: TONYA Deras Admitting Provider: Lauren Santana MD Attending Provider on Admission: Teddy Ng MD Consults: 11/19/24 21:15 Consult to General Surgery Stat Comment: Abdominal pain, cholelithiasis Consulting Provider: Sandra Briggs 11/20/24 02:11 Referral Patrick Routine Comment: Referral Registered Dietitian Routine Comment: Health [facility]ity Referral - Knowledge Deficit Routine Comment: Positive screening for knowledge deficit needs. 11/21/24 15:15 Consult to Gastroenterology Routine Comment: Consulting Provider: Brina Castano Attending Provider on DC: Teddy Ng MD Discharging Provider: Teddy Ng MD DS: Diagnosis Problem List Completed Was Problem List Reviewed/Reconciled?: Yes Hospital Course Hospital Course Hospital course: Katja is a 54 y/o female with PMHx of HTN, HLD, obesity, hypothyroidism, active tobacco smoker, depression and MARY who was admitted to [facility] on 11/19/2024 for diverticulitis and air containing possible 5.2 abscess found in the pelvis. Pt reports that she was experiencing some abdominal pain that had started in the epigastric pain, however migrated to LLQ. Pt reported that she had possible similar sx to this before, however is unsure if she has ever had diverticulitis before. She had a colonoscopy last year in [place], but did not know the results of it. Pt came to the ED with unremarkable vitals. She was worked up and was found to have WBC of 18, hemoglobin 10.5 (baseline seems to be 11), glucose 169, sodium 135. Abdominal ultrasound did show cholelithiasis but no cholecystitis but showed fatty liver disease. CT abdomen pelvis showed rectosigmoid inflammatory changes and a possible 5.2 cm air-containing abscess. Pt was started on Zoysn, general surgery and medicine were consulted and patient was admitted to the floors. Dr. White, general surgeon, was consulted who recommended IV Zoysn and no surgical intervention at this time, however IR drainage of abscess. We spoke w/ IR who recommended air containing abscess was not amenable to drainage. GI was consulted who said it was acute left-sided diverticulitis with microperforation which was likely sealed off and a 5.2 cm Diverticular abscess. Pt was experiencing some constipation throughout the admission. We started giving patient multiple anticonstipation meds medicines including laxatives and enema, however patient did not go. We then shortly ordered an x-ray which showed possible concern for small bowel obstruction. We then ordered Gastrografin with small bowel series. After the last x-ray, small bowel series showed negative small bowel obstruction. Patient most likely had an ileus. We then started Reglan for the patient 10 mg and patient was able to have multiple bowel movements. At the time patient was not experiencing any vomiting as as well. Patient then continued to improve and we then discharged the patient with recommendations to follow-up with PCP and GI outpatient. - Follow up with PCP within 1 week from NH. If you dont have a PCP, you can come to the [address] [place] [address] Call : [phone] for an appointment - Take Ciprofloxacin 500 mg twice a day by mouth for ten days - Take Metronidazole 500 mg twice a day by mouth for ten days - Take Fiber supplement if constipated - Take lactobacillus (probiotic) with food - We recommend having your primary care doctor to refer you to GI - Return to the ER if your symptoms return or worsen #Small bowel obstruction, ruled out #Ileus #Pelvic abscess #Acute abdominal pain #Chronic constipation #GERD #HTN, HLD #Chronic lower extremity edema #? Chronic lymphedema #Hypothyroidism #Seasonal allergies #Depression #MARY #Active tobacco user Patient seen and care discussed with my senior resident, Dr. Selby , and my attending physician, Dr. Berenice Hussein, PGY-1 Time Spent with Patient Time attestation: Total time spent providing and/or coordinating discharge services: Time spent: Greater than 30 minutes Exam Vital Signs Temp Pulse Resp BP Pulse Ox O2 Del Method 97.8 F 100 20 111/66 100 Room Air 11/22/24 08:00 11/22/24 09:17 11/22/24 09:17 11/22/24 08:00 11/22/24 09:17 11/22/24 08:00 Narrative Exam General: AAOx3, NAD, obese female HEENT: Moist mucous membranes, conjunctiva clear, EOMI, PERRLA, Cardiovascular: S1, S2, radial pulses +2 bilat, RRR Pulmonary: CTAB bilat no cough, no wheezing GI: Tenderness to palpitation, mild distension of abdomen, little to no bowel sounds appreciated on ausculation Extremities: No presence of trace or pitting edema in lower extremities bilaterally, dorsalis pedis pulses +2 bilaterally Neuro: AAOx3, no focal motor or sensory deficits in the UE or LE bilat Psych: Good judgement, thought and behavior Discharge Plan Plan Patient Disposition: HOME (Self Care) Patient condition on transfer: Stable Prescriptions/Referrals Prescriptions/Med Rec: New metronidazole 500 mg tablet 500 mg PO BID Qty: 20 0RF ciprofloxacin HCl 500 mg tablet 500 mg PO BID Qty: 20 0RF Lactobacillus acidophilus 10 billion cell capsule 10,000 mmu cells PO QDAY 30 Days Qty: 30 0RF psyllium husk [Natural Fiber Laxative] 0.52 gram capsule 0.52 g PO QDAY PRN (Reason: constipation) 30 Days Qty: 60 0RF hydrocodone-acetaminophen 5-325 mg tablet 1 tab PO Q8H MDD 3 tablets PRN (Reason: pain (scale score 4-6)) Qty: 15 0RF Continued metoprolol tartrate 100 mg tablet 100 mg PO BID clozapine 100 mg tablet 250 mg PO HS Patient Comments: TAKE THREE TABLETS BY MOUTH AT BED TIME lisinopril 10 mg tablet 10 mg PO QDAY Patient Comments: TAKE ONE TABLET BY MOUTH EVERY DAY FOR BLOOD PRESSURE oxcarbazepine 150 mg Tablet 150 mg PO BID omeprazole 40 mg Capsule,Delayed Release(Dr/Ec) 40 mg PO QDAY simvastatin 20 mg Tablet 20 mg PO QPM buspirone 30 mg Tablet 30 mg PO BID montelukast 10 mg Tablet 10 mg PO QDAY docusate sodium 250 mg Capsule 250 mg PO QDAY aripiprazole 10 mg Tablet 10 mg PO QDAY fluoxetine 60 mg Tablet 60 mg PO QDAY albuterol sulfate 90 mcg/actuation HFA aerosol inhaler 2 puff INHALATION Q4H PRN (Reason: shortness of breath) Patient Comments: INHALE TWO PUFFS BY MOUTH EVERY 6 HOURS NEEDED FOR BREATHING Anoro Ellipta 62.5-25 mcg/actuation blister with device 1 inh INHALATION Q24H Patient Comments: INHALE 1 PUFF BY MOUTH EVERY DAY Held amlodipine 10 mg tablet 10 mg PO QDAY Hold Instructions: Resume on 12/07/24. Patient Comments: TAKE ONE TABLET BY MOUTH EVERY DAY FOR BLOOD PRESSURE Referrals: Andria Pace FNP [Primary Care Provider] - Patient/Caregiver Discharge Instructions Discharge Activity: resume usual activities Other Discharge Activity Instructions:: - Follow up with PCP within 1 week from NH. If you dont have a PCP, you can come to the [facility] [place] [address] [place] [id number] Call : [phone] for an appointment - Take Ciprofloxacin 500 mg twice a day by mouth for ten days - Take Metronidazole 500 mg twice a day by mouth for ten days - Take Fiber supplement if constipated - Take lactobacillus (probiotic) with food - We recommend having your primary care doctor to refer you to GI - Return to the ER if your symptoms return or worsen Print Language: Samoan Stand Alone Forms: [employer] Award Info., Patient Portal Info Letter Discharge Order Discharge Orders: Discharge (Routine); Ordered 11/23/24 Ordered By: Gennaro Maciel Quality Discharge Quality Measures VTE prophylaxis (Heparin) MD Attestestation MD Attestation I reviewed labs, imaging, EKG, home medications and prior available records. Face to face evaluation was performed by me. I have personally examined the patient and discussed assessment and plan with the IM team. I reviewed the resident note and agree with the plan with exceptions as below. Pelvic abscess: Found to have rectosigmoid inflammation and 5.2 cm pelvic abscess possibly related to diverticular perforation. Discussed with IR: The abscess is air-filled for which it is difficult to drain. Recommended IV antibiotics. Discussed with general surgery: No indication for surgery at this time. Will discharge on ciprofloxacin/Flagyl. Possible SBO: Gastrografin study showed incomplete SBO. Symptoms improved and patient passed several bowel movements. Able to tolerate her diet. Time spent is 40 minutes. More than 50% of the time was spent on patient education and coordination of care.
--- NOTE | 2024-11-23 11:17 | ESPR_ITS ---
Documentation for date of: 11/23/24 Subjective Subjective Interval history: 11/20/2024: Pt examined at bedside today. Says that she has been having some epigastric pain and it has radiated to her lower abdomen. She says that she has not had these feelings before, however she deals with chronic constipation which she takes MiraLAX for. She says she got a colonoscopy recently, however does not know what the results of this is. Says she still smokes cigs. No other complaints at this time. 11/21/2024: Patient examined at bedside today. No acute overnight events. Patient reports she is doing okay, says her abdominal pain has been controlled. She says that she remembers that she did her colonoscopy last year in [place]. She has no chest pain or shortness of breath at this time. Has not vomited. No other complaints at this time 11/22/2024: Pt examined at bedside today by. No acute overnight events. Patient reports she is doing okay her abdominal pain has been fine. She was post get later discharged today, however patient was pending bowel movement. With additional tries of other laxatives and enema patient was not able to a bowel movement. X-ray was ordered which showed possible small bowel obstruction and Gastrografin small bowel series was ordered. Patient's white count today is 6.4, hemoglobin 9.2, BUN/creatinine 6 and 0.7 respectively, potassium 3.5, magnesium 2.0, sodium 139 11/23/2024: Pt examined at bedside today. No acute overnight events. Patient reports that she slept okay. She also says that she was able to have some bowel movements were moderate 1 was diarrhea-like and the other was solid consistency. She does say that she has not been nauseous and is requesting to drink something at this time. She has no chest pain or shortness of breath. She wondering as when she is going to go home today. No other complaints at this time. Hemoglobin for patient 10.5, white count 8.8, potassium 3.4, magnesium 2.2, BUN/creatinine 8 and 0.7 respectively, sugar 124. Exam Vital Signs Temp Pulse Resp BP Pulse Ox O2 Del Method 98.9 F 88 18 129/74 97 Room Air 11/23/24 08:00 11/23/24 08:00 11/23/24 08:00 11/23/24 08:00 11/23/24 08:00 11/23/24 08:00 Narrative Exam General: AAOx3, NAD, obese female HEENT: Moist mucous membranes, conjunctiva clear, EOMI, PERRLA, Cardiovascular: S1, S2, radial pulses +2 bilat, RRR Pulmonary: CTAB bilat no cough, no wheezing GI: Tenderness to palpitation, mild distension of abdomen, little to no bowel sounds appreciated on ausculation Extremities: No presence of trace or pitting edema in lower extremities bilaterally, dorsalis pedis pulses +2 bilaterally Neuro: AAOx3, no focal motor or sensory deficits in the UE or LE bilat Psych: Good judgement, thought and behavior Objective Labs 11/23/24 04:13 11/23/24 04:13 Labs: Laboratory Results - last 24 hr 11/23/24 04:13 WBC 8.8 RBC 4.19 Hgb 10.5 L Hct 33.2 L MCV 79 L MCH 25.1 MCHC 31.6 RDW Std Deviation 45.6 Plt Count 368 D Neut % (Auto) 77 Lymph % (Auto) 14 [place] % (Auto) 7 Eos % (Auto) 1 Baso % (Auto) 0 Neut # (Auto) 6.8 Lymph # (Auto) 1.2 [place] # (Auto) 0.6 Eos # (Auto) 0.1 Baso # (Auto) 0.0 Immature Gran # (Auto) 0.08 H Absolute Nucleated RBC 0.03 H Immature Gran % 1 H Nucleated RBC % 0 Sodium 140 Potassium 3.4 Chloride 99 Carbon Dioxide 31.2 H Anion Gap 10 BUN 8 L Creatinine 0.7 Estim Creat Clear Calc 116.8 eGFR > 60 BUN/Creatinine Ratio 11 L Glucose 124 H Calculated Osmolality 278 Calcium 9.5 Corrected Calcium 9.5 Phosphorus 4.2 Magnesium 2.2 Total Bilirubin 0.3 AST 15 ALT 16 Alkaline Phosphatase 153 H Total Protein 6.6 Albumin 4.2 D Globulin 2.4 Albumin/Globulin Ratio 1.8 Quality Measures Quality Measures none Assessment & Plan Assessment Current Active Medications: Generic Name Dose Route Start Last Admin Trade Name Freq PRN Reason Stop Dose Admin Acetaminophen 650 mg 11/19/24 22:42 Acetaminophen 325 Mg Tablet PO 12/19/24 22:41 Q6H PRN PAIN SCALE 1-3 (mild Acetaminophen 650 mg 11/19/24 22:42 Acetaminophen 325 Mg Tablet PO 12/19/24 22:41 Q6H PRN Fever >100 Amlodipine Besylate 10 mg 11/19/24 22:55 11/20/24 00:47 Amlodipine Besylate 5 Mg Tablet PO 12/19/24 22:54 Not Given QDAY JOE Aripiprazole 10 mg 11/20/24 09:00 11/23/24 10:09 Aripiprazole 5 Mg Tablet PO 12/20/24 08:59 10 mg QDAY JOE Administration Atorvastatin Calcium 20 mg 11/20/24 21:00 11/22/24 20:59 Atorvastatin Calcium 20 Mg Tablet PO 12/20/24 20:59 Not Given HS JOE Buspirone HCl 30 mg 11/20/24 09:00 11/23/24 10:08 Buspirone Hcl 5 Mg Tablet PO 12/20/24 08:59 30 mg BID JOE Administration Clozapine 250 mg 11/20/24 21:00 11/22/24 20:59 Clozapine 50 Mg Tablet PO 12/20/24 20:59 Not Given HS JOE Protocol Fluoxetine HCl 60 mg 11/20/24 09:00 11/23/24 10:08 Fluoxetine Hcl 10 Mg Capsule PO 12/20/24 08:59 60 mg QDAY JOE Administration Hydromorphone HCl 1 mg 11/22/24 18:45 Hydromorphone Inj 2 Mg/Ml Vial IVP 11/27/24 18:44 Q4HR PRN Pain 7-10 Piperacillin/Tazobactam/Dextrose 50 mls @ 12.5 mls/hr 11/20/24 14:00 11/23/24 05:36 Zosyn IV 11/27/24 05:59 12.5 mls/hr Q8HR JOE Administration Levothyroxine Sodium 50 mcg 11/20/24 06:00 11/23/24 06:00 Levothyroxine Sodium 25 Mcg Tablet PO 12/20/24 05:59 Not Given ACBR JOE Lisinopril 10 mg 11/19/24 23:00 Lisinopril 2.5 Mg Tablet PO 12/19/24 22:59 QDAY JOE Metoclopramide HCl 10 mg 11/23/24 09:00 11/23/24 10:09 Metoclopramide 5 Mg Tablet PO 11/24/24 08:59 10 mg Q6HR JOE Administration Metoprolol Tartrate 100 mg 11/19/24 23:00 Metoprolol Tartrate 25 Mg Tablet PO 12/19/24 22:59 BID JOE Morphine Sulfate 2 mg 11/21/24 13:57 11/22/24 22:36 Morphine Sulf Inj 10 Mg/Ml Vial IVP 11/26/24 13:56 2 mg Q4HR PRN Administration Pain 7-10 Ondansetron HCl 4 mg 11/19/24 22:42 Ondansetron Inj 2 Mg/Ml Inj 2 Ml IV 12/19/24 22:41 Q6H PRN NAUSEA OR VOMITING Protocol Oxcarbazepine 150 mg 11/20/24 09:00 11/23/24 10:16 Oxcarbazepine 150 Mg Tablet (Non-Formulary) PO 12/20/24 08:59 150 mg BID JOE Administration Oxycodone/Acetaminophen 1 tab 11/19/24 22:42 11/23/24 10:35 Oxycodone/Apap 5/325 Tablet PO 11/24/24 22:41 1 tab Q6H PRN Administration PAIN SCALE 4-6 (Moderate Pantoprazole Sodium 40 mg 11/20/24 09:00 11/23/24 10:09 Pantoprazole Inj 40 Mg Vial IVP 12/20/24 08:59 40 mg QDAY JOE Administration Polyethylene Glycol 17 gm 11/20/24 09:00 11/23/24 10:09 Polyethylene Glycol 17 Gm Packet PO 12/20/24 08:59 17 gm QDAY JOE Administration Plan Assessment 54-year-old female PMHx of HTN, HLD, obesity, hypothyroidism, active tobacco smoker, depression and generalized anxiety, senting with acute abdominal pain. Admitted for pelvic abscess and IV ANTIBIOTICS. #Small bowel obstruction, ruled out #Small bowel Ileus #Pelvic abscess #Acute abdominal pain #Chronic constipation #GERD Presenting with 3 days of generalized abdominal pain, 9/10 scale, nausea, fever, and chills. Found to have rectosigmoid inflammation and 5.2 cm pelvic abscess possibly related to diverticular perforation. Abdominal ultrasound showed cholelithiasis but no cholecystitis. He has appointment with general surgery in [place] for next month, currently pending preop clearance. She had colonoscopy done 1 year ago in [place] but never followed up on results. She has chronic constipation for which she takes stool softeners and stimulants daily. On average, BM every third day, last BM 3 days ago and was normal, nonbloody. General surgery recommended IV ANTIBIOTICS, no surgical intervention at this time. No abnormal weight loss, vomiting or diarrhea or GI bleed. No weight loss or night sweats Pt could be having Diverticulitis and could of developed an abscess Could be a component of IBD At this point based off radiology imaging, air-fluid abscess is not amendable to drainage Surgery is not going to intervene at this time with surgical intervention Will consider reimaging with additional antibiotic treatment Due to patient not having bowel movement, KUB was ordered which showed possible small bowel obstruction pattern Gaseous graafian and small bowel series completed, negative for small bowel obstruction Patient likely has ileus Will continue with conservative management Patient was able to have some bowel movements as well Will keep patient 1 more day and for monitoring of ileus Was given Reglan 10 mg and patient was able to have bowel movements after that Patient began to feel a bit dizzy after that, chest x-ray and EKG were ordered and were unremarkable EKG showed sinus tach Plan: - General surgery consulted, appreciate recs ? Pain control. ? Bowel regimen ? Continue ZOSYN 3.375 mg q.6h. (2/3 to present) ? Continue PROTONIX 40 mg daily ? Dilaudid 1 mg every 4 hours as needed ? Clear liquid diet ? GI consult, appreciate recs #HTN, HLD #Chronic lower extremity edema #? Chronic lymphedema Previously on LASIX 20 mg daily for lower extremity edema, PCP stopped 1 month ago. On METOPROLOL 100 mg BID but denies history of heart failure. States she had an echo a year ago which was normal. No history of CHF. Had an echo done a year ago which was normal. Lower extremity edema on exam. Lung sounds are clear. Currently normotensive. HR 80s. Will hold home antihypertensives. Will resume as indicated. Plan: ? Resume home ATORVASTATIN 20 mg daily ? Holding home METOPROLOL 100 mg BID ? Holding home LISINOPRIL 10 mg daily ? Holding home AMLODIPINE 10 mg daily ? Consider heart failure workup if indicated. #Hypothyroidism ? Resume home LEVOTHYROXINE 50 mcg AC BR #Seasonal allergies ? Continued MONTELUKAST 10 mg daily #Depression #MARY ? Resumed home BUSPIRONE 30 mg BID ? Resumed home OXCARBAZEPINE 300 mg daily ? Resumed home FLUOXETINE 60 mg daily ? Resumed home CLOZAPINE 250 mg HS #Active tobacco user Smokes 3 liters daily for 3 days. ? Consider starting NICOTINE patch as needed #Health Maintenance Disposition: Med Surg DVT prophylaxis: SCDs GI prophylaxis: Protonix heparin subcu Diet: Peptic ulcer CODE STATUS: Full Patient seen and care discussed with my senior resident, Dr. Selby, and my attending physician, Dr. Berenice Hussein, PGY-1 Attending Provider Attestation/Addendum I reviewed labs, imaging, EKG, home medications and prior available records. Face to face evaluation was performed by me. I have personally examined the patient and discussed assessment and plan with the IM team. I reviewed the resident note and agree with the plan with exceptions as below. Pelvic abscess: Found to have rectosigmoid inflammation and 5.2 cm pelvic abscess possibly related to diverticular perforation. Discussed with IR: The abscess is air-filled for which it is difficult to drain. Recommended IV antibiotics. Discussed with general surgery: No indication for surgery at this time. Will discharge on ciprofloxacin/Flagyl. Possible SBO: Gastrografin study showed incomplete SBO. Symptoms improved and patient passed several bowel movements. Able to tolerate her diet. Time spent is 40 minutes. More than 50% of the time was spent on patient education and coordination of care.
--- NOTE | 2024-11-23 11:42 | EKG_ITS ---
[facility] Test Date: 2024-11-23 Pat Name: CARMEN MAYFIELD [facility] Gender: Female [employer] Education Consultant: COREEN : 1970 Requested By: Gennaro Maciel Order Number: [id number] Reading MD: Gennaro Maciel Measurements Intervals [place] Rate: 106 P: 47 RI: 183 QRS: 65 QRSD: 77 T: 11 QT: 356 QTc: 474 Interpretive Statements SINUS TACHYCARDIA NONSPECIFIC T-WAVE ABNORMALITY ABNORMAL RHYTHM ECG Compared to ECG 11/22/2024 12:58:36 T-wave abnormality now present /store/S0/[id number]/[id number].pdf
--- NOTE | 2024-11-23 11:42 | XR_ITS ---
Examination: AP chest single view Technique one AP portable upright chest single view Exam date and time: November 23, 2024 1204 hours Comparison February 13, 2021 INDICATIONS: Shortness of breath today FINDINGS: Normal heart size Subsegmental atelectasis right base No pneumonia or pulmonary edema IMPRESSION: No pneumonia or pulmonary edema
--- NOTE | 2024-11-23 11:47 | PC.NURSE ---
Notified Dr. Ng of pt increasing SOB and tachycardia along with abnormal rhythm on palpation. MD gave verbal order for STAT EKG and chest XR. Orders entered. RT notified
[2024-11-23 12:00] VITALS: BP 121/73; PULSE 87; RESP 18; TEMP 36.2; O2SAT 94
[2024-11-23 12:18] LABS: Glucose Estimated Average 114 mg/dL (80-131); Hemoglobin A1C 5.6 % Hgb (4.8-6.0)
[2024-11-23 16:00] VITALS: BP 124/87; PULSE 97; RESP 16; TEMP 36.5; O2SAT 92
== END 2024-11-23 18:03 | disposition home or self-care (01) | DRG 391 ==
LOC: SERX 22:25 → SERHOLD 23:24 → S3SX 11-20 00:43
PROVIDERS: Nurse Practitioner Primary Care; Radiology Diagnostic Radiology; Student in an Organized Health Care Education/Training Program; Admitting Provider Student in an Organized Health Care Education/Training Program; Emergency Provider Emergency Medicine; PCP Nurse Practitioner Family; Visit Provider Student in an Organized Health Care Education/Training Program
DX: K57.20 Diverticulitis of large intestine with perforation and abscess without bleeding (principal); K65.1 Peritoneal abscess; K56.7 Ileus, unspecified; I10 Essential (primary) hypertension; N74 Female pelvic inflammatory disorders in diseases classified elsewhere; K80.20 Calculus of gallbladder without cholecystitis without obstruction; E66.9 Obesity, unspecified; Z68.38 Body mass index [BMI] 38.0-38.9, adult; K59.09 Other constipation; E03.9 Hypothyroidism, unspecified; K21.9 Gastro-esophageal reflux disease without esophagitis; J44.9 Chronic obstructive pulmonary disease, unspecified; E78.5 Hyperlipidemia, unspecified; I89.0 Lymphedema, not elsewhere classified; F41.8 Other specified anxiety disorders; K76.0 Fatty (change of) liver, not elsewhere classified; M10.9 Gout, unspecified; J30.2 Other seasonal allergic rhinitis; Z87.19 Personal history of other diseases of the digestive system; F17.210 Nicotine dependence, cigarettes, uncomplicated; Z79.890 Hormone replacement therapy; Z79.899 Other long term (current) drug therapy
CPT/HCPCS: 36415; 71045; 74018; 74176; 74250; 76705; 80053; 81001; 81025; 82274; 83036; 83690; 83735; 84100; 85025; 85610; 85730; 87040; 93005; 94640; 94664; 96365; 99285; A9270; J0696; J2270; J2470; J2543; J3490; J7030; J7050; J7999; Q9963; G0328; J1836

== ENCOUNTER → 2025-01-10 | Outpatient (CLI) | payer MEDICARE, MEDICAID, SELFPAY ==
[2025-01-09 12:14] LABS: HCG Qualitative,Urine Negative
--- NOTE | 2025-01-10 14:30 | XR_ITS ---
Examination: CT chest, without intravenous contrast. Sagittal and coronal 2-D reconstructions. Exam date and time: January 10, 2025 at 1426 hours INDICATIONS: 8mm 6 mm nodules in the right upper lobe on CT chest January 05, 2024 CTDI:vol (mGy) 15.4 DLP: (mGycm) 594 Technique: Multiple 3.0 mm axial sections of the chest to been obtained. Bone and lung density settings are obtained. Sagittal and coronal 2-D reconstructions have been obtained. Low dose protocols were performed. One or more of the following dose reduction techniques were used; automated exposure control, adjustment of the mA and/or KV according to patient size, use of iterative reconstruction technique. Findings: Stable small periaortic lymph nodes No thoracic aortic aneurysmal dilatation Main pulmonary artery segment 31 mm Stable small pulmonary nodules right upper lobe New 3 mm pulmonary nodule left lower lobe image 281 No visualized liver or splenic lesion No gallstones IMPRESSION: New 3 mm pulmonary nodule left lower lobe compared with CT chest January 05, 2024 Recommend continued 6 month follow-up CT chest without contrast
== END | disposition home or self-care (01) ==
PROVIDERS: Referring Provider Physician Assistant; Visit Provider Physician Assistant
DX: R91.1 Solitary pulmonary nodule (principal); Z32.00 Encounter for pregnancy test, result unknown
CPT/HCPCS: 71250; 81025

== ENCOUNTER → 2025-01-29 | Outpatient (CLI) | payer MEDICARE, MEDICAID, SELFPAY ==
[2025-01-29 12:51] LABS: HCG Qualitative,Urine Negative
--- NOTE | 2025-01-29 14:30 | XR_ITS ---
Examination: CT abdomen with intravenous contrast CT pelvis with intravenous contrast 2-D coronal reconstructions 2-D sagittal reconstructions Date and time of exam:January 29, 2025 at 1516 hours Comparison November 19, 2024. INDICATIONS: History diverticulitis, abdominal pain this week CTDI: vol (mGy) 13.8 DLP: (mGycm) 796 Technique: Multiple axial sections of the abdomen and pelvis have been obtained. 64 slice high-resolution scanner used. 3 mm axial sections have been obtained, post intravenous injection 60 cc [id number] 2-D sagittal, coronal reconstructions obtained. Low dose protocols were performed. One or more of the following dose reduction techniques were used; automated exposure control, adjustment of the mA and/or KV according to patient size, use of iterative reconstruction technique. Findings: No focal liver or splenic lesion No gallstones No pancreatic or adrenal mass No renal or ureteral calculi, no hydronephrosis No current colitis or diverticulitis Urinary bladder intact No pericecal inflammatory change Moderate to advanced diffuse lumbar degenerative disc disease IMPRESSION: No renal or ureteral calculi, no hydronephrosis No current diverticulitis or nonspecific colitis
== END | disposition home or self-care (01) ==
LOC: CCTX 13:48
PROVIDERS: PCP Physician Assistant; Referring Provider Internal Medicine Gastroenterology; Visit Provider Internal Medicine Gastroenterology
DX: R10.2 Pelvic and perineal pain (principal); R10.9 Unspecified abdominal pain; Z32.00 Encounter for pregnancy test, result unknown
CPT/HCPCS: 74177; 81025; A4649; Q9967

== ENCOUNTER → 2025-03-16 | Outpatient (CLI) | payer MEDICARE, MEDICAID, SELFPAY ==
--- NOTE | 2025-03-16 08:00 | XR_ITS ---
Examination: Screening digital mammography, bilateral Computer aided detection 3-D breast Tomosynthesis, bilateral Date and time of exam: March 16, 2025 0738 hours No priors Indication: Screening Technique: Nonmagnified MLO, CC views of the breasts to been obtained, reconstructed from 3-D Tomosynthesis images. R2 computer aided detection program utilized for evaluation of suspicious masses and/or abnormal calcifications. 3-D Tomosynthesis images obtained. Findings: The breasts are heterogeneously dense, which may obscure small masses 14 mm focal asymmetry 12:00 position right breast anterior depth 10 mm focal asymmetry outer left breast CC view, 8.8 cm from the nipple Impression: BI-RADS Category 0: Incomplete: Need additional imaging evaluation Recommend follow-up spot tomographic views of 14 mm focal asymmetry 12:00 position right breast 10 mm focal asymmetry outer left breast CC view 8.8 cm from the nipple, recommend follow-up spot tomographic views upper outer quadrant left breast Recommend bilateral breast sonography follow-up to complete the workup
== END | disposition home or self-care (01) ==
LOC: CDIM 07:31
PROVIDERS: PCP Physician Assistant; Referring Provider Physician Assistant; Visit Provider Physician Assistant
DX: Z12.31 Encounter for screening mammogram for malignant neoplasm of breast (principal); N64.89 Other specified disorders of breast
CPT/HCPCS: 77063; 77067

== ENCOUNTER → 2025-04-25 | Outpatient (CLI) | payer MEDICARE, MEDICAID, SELFPAY ==
--- NOTE | 2025-04-25 | XR_ITS ---
Examination: Diagnostic digital mammography, bilateral Computer aided detection 3-D breast Tomosynthesis, bilateral Date and time of exam: April 25, 2025 0909 hours INDICATIONS: Mammogram March 16, 2025 14 mm focal asymmetry 12:00 position right breast, 10 mm focal asymmetry outer left breast CC view Technique: Nonmagnified MLO, CC views of the breasts to been obtained, reconstructed from 3-D Tomosynthesis images. R2 computer aided detection program utilized for evaluation of suspicious masses and/or abnormal calcifications. 3-D Tomosynthesis images obtained. Findings: The breasts are heterogeneously dense, which may obscure small masses 9 mm nodule upper outer right breast anterior depth partially circumscribed 7 mm nodule 4:00 position left breast, partially circumscribed Impression: BI-RADS Category 3: Probably benign findings One additional 6 month bilateral mammography follow-up needed to document stability of bilateral nodules described above.
--- NOTE | 2025-04-25 08:45 | XR_ITS ---
Examination: Breast ultrasound complete, bilateral Date and time of exam: April 25, 2025 0839 hours INDICATIONS: Mammogram March 16, 2025 14 mm focal asymmetry 12:00 position right breast anterior depth Technique: Real-time grayscale ultrasonographic imaging bilateral breasts, including all 4 quadrants as well as nipple retroareolar and axillary regions. Findings: Sonographic images right breast Multiple benign cysts 9:00 nodule circumscribed 7 x 4 mm 10:00 nodule circumscribed 6 x 5 mm Sonographic images left breast Benign cysts 4:00 nodule lobular margins 8 x 8 mm 4:00 nodule circumscribed 7 x 7 mm IMPRESSION: BI-RADS Category 3: Probably benign findings One additional 6 month bilateral breast sonography follow-up is needed to document stability of solid nodules described above
== END | disposition home or self-care (01) ==
LOC: CDIM 08:18
PROVIDERS: PCP Physician Assistant; Referring Provider Physician Assistant; Visit Provider Physician Assistant
DX: N60.12 Diffuse cystic mastopathy of left breast (principal); N60.11 Diffuse cystic mastopathy of right breast; N63.15 Unspecified lump in the right breast, overlapping quadrants; N63.11 Unspecified lump in the right breast, upper outer quadrant; N63.23 Unspecified lump in the left breast, lower outer quadrant; R92.333 Mammographic heterogeneous density, bilateral breasts
CPT/HCPCS: 76641; 77062; 77066; G0279

== ENCOUNTER → 2025-08-20 | Outpatient (CLI) | payer MEDICARE, MEDICAID, SELFPAY ==
[2025-08-20 10:33] LABS: HCG Qualitative,Urine Negative
--- NOTE | 2025-08-20 11:30 | XR_ITS ---
Examination: CT chest, without intravenous contrast. Sagittal and coronal 2-D reconstructions. Exam date and time: August 20, 2025, 1129 hours, comparison January 10, 2025 INDICATIONS: CT chest January 10, 2025 3 mm pulmonary nodule left lower lobe, 8 mm 6 mm pulmonary nodules right upper lobe on CT chest January 05, 2024 CTDI:vol (mGy) 17.1 DLP: (mGycm) 676 Technique: Multiple 3.0 mm axial sections of the chest to been obtained. Bone and lung density settings are obtained. Sagittal and coronal 2-D reconstructions have been obtained. Low dose protocols were performed. One or more of the following dose reduction techniques were used; automated exposure control, adjustment of the mA and/or KV according to patient size, use of iterative reconstruction technique. Findings: No thoracic aortic aneurysm dilatation Mild enlargement pulmonary artery segment No paratracheal tracheobronchial or bronchopulmonary adenopathy. New 4 mm solid pulmonary nodule right upper lobe Remaining nodules stable No pneumonia or pulmonary edema No visualized liver or splenic lesion No hydronephrosis Contracted gallbladder IMPRESSION: Bilateral pulmonary nodules again noted, new 4 mm pulmonary nodule right upper lobe, recommend continued 6-month follow-up CT chest without contrast
== END | disposition home or self-care (01) ==
LOC: CCTX 11:27
PROVIDERS: Referring Provider Physician Assistant; Visit Provider Physician Assistant
DX: Z12.2 Encounter for screening for malignant neoplasm of respiratory organs (principal); R91.8 Other nonspecific abnormal finding of lung field; Z32.00 Encounter for pregnancy test, result unknown
CPT/HCPCS: 71250; 81025